=== PATIENT | male | born 1940 | race Caucasian/White ===

== ENCOUNTER → 2017-06-27 | Outpatient (CLI) | payer MEDICARE, BC | END | disposition home or self-care (01) | LOC: KCIC MRI 07:39 | DX: M48.061 Spinal stenosis, lumbar region without neurogenic claudication (principal); M47.896 Other spondylosis, lumbar region; G89.29 Other chronic pain; Z98.890 Other specified postprocedural states | CPT/HCPCS: 72148 ==

== ENCOUNTER → 2017-10-02 | Outpatient (CLI) | payer MEDICARE, BC | END | disposition home or self-care (01) | LOC: MRI 08:01 | DX: N28.1 Cyst of kidney, acquired (principal); K86.89 Other specified diseases of pancreas; I10 Essential (primary) hypertension; E11.9 Type 2 diabetes mellitus without complications; E78.5 Hyperlipidemia, unspecified; E03.9 Hypothyroidism, unspecified | CPT/HCPCS: 74181 ==

== ENCOUNTER 2018-02-27 14:27 | Inpatient (IN) | payer MEDICARE, BC ==
[~2018-02-27] VITALS: Ht 175.3 cm; Wt 73.5 kg
[2018-02-27 14:00] VITALS: BP 147/78
[~2018-02-27 14:27] MED LIST: ALFU10TA PO; ASPI-630 PO; ATOR20TA58 PO; CANA100T PO; DUTA0.5C PO; GLIM4TAB2 PO; LEVO50TA5 PO; LISI2.5T PO; METO-239 PO; MULT-312 PO; OMEG-33 PO; PIOG15TA63 PO; SAXA1TBM3 PO; TICA90TA PO
[2018-02-27] MEDS ORDERED: ONDANSETRON PF 4 MG/2 ML VIAL. IV PRN (16:15)
[2018-02-27] MEDS ORDERED: DOCUSATE SODIUM 100 MG CAPSULE. PO PRN (16:15)
[2018-02-27] MEDS ORDERED: traMADol 50 MG TABLET PO PRN (16:15)
[2018-02-27] MEDS ORDERED: HYDROcodone/APAP 5/325MG 1 TAB TABLET PO PRN (16:15)
[2018-02-27] MEDS ORDERED: MORPHINE SULFATE 2 MG/ML VIAL. IV PRN (16:15)
[2018-02-27] MEDS ORDERED: ACETAMINOPHEN 325 MG TABLET. PO PRN (16:15)
[2018-02-27] MEDS ORDERED: ALFU10TA3 PO (16:18)
[2018-02-27] MEDS ORDERED: INSU300I SQ (16:18)
[2018-02-27] MEDS ORDERED: DUTA0.5C15 PO (16:18)
[2018-02-27] MEDS ORDERED: TRAM50TA PO (16:18)
[2018-02-27] MEDS ORDERED: LIPA1CAP8 PO ×2 (16:18)
[2018-02-27] MEDS ORDERED: METF500T16 PO (16:18)
[2018-02-27] MEDS ORDERED: RABE20TA26 PO (16:18)
[2018-02-27] MEDS ORDERED: CLOP75TA PO (16:18)
[2018-02-27] MEDS ORDERED: LISI10TA2 PO (16:18)
--- NOTE | 2018-02-27 16:29 | PDOC1 ---
History and Physical Date of Admission Date of Admission 02/27/18 Identification/Chief Complaint Chief Complaint fall with rt femoral neck Source Source: Chart review, Patient History of Present Illness History of Present Illness 77YO M, was transferred from [facility] for rt hip fx. pt missed one step stair at home today, fell on the floor landing on rt lower ext, with severe pain, cannot get up. helped him got up to the truck and drove to ER. xr SHOWED rt hip fx. head ct neg. pt has h/o CABG, no chest pain or sob recently. Past Medical History Cardiovascular: CAD, HTN, Hyperlipidemia Endocrine: Diabetes Past Surgical History Past Surgical History: CABG Family History Family History: Hypertension Social History Smoke: No ALCOHOL: none Drugs: None Allergies Allergies Allergies Coded Allergies Type Severity Reaction Last Updated Verified No Known Drug Allergies 04/19/15 No ROS Review of System CONSTITUTIONAL: No fever or chills EYES: No recent changes SKIN: No rash or itching CARDIOVASCULAR: No chest pain, syncope, palpitations, or edema RESPIRATORY: No SOB or cough GASTROINTESTINAL: No nausea, vomiting or abdominal pain NEUROLOGICAL: No headaches or weakness ENDOCRINE: No cold or heat intolerance GENITOURINARY: No urgency or frequency of urination MUSCULOSKELETAL: No back pain or joint pain LYMPHATICS: No enlarged lymph nodes PSYCHIATRIC: No anxiety or depression Physical Exam Physical Exam GEN.: No apparent distress. Alert and oriented. HEENT: Head is normocephalic, atraumatic NECK: Supple. LUNGS: Clear to auscultation. HEART: RRR, S1, S2 present. Peripheral pulses intact ABDOMEN: Soft, nontender. Positive bowel sounds. EXTREMITIES: Without any cyanosis.can move bl toes, rt leg cannot move 2/2 pain, mild externally rotated mild. NEUROLOGIC: Normal speech, normal tone. rt leg pain. PSYCHIATRIC: Normal affect, normal mood. SKIN: No ulcerations VTE Prophylaxis Ordered VTE Prophylaxis Devices: Yes VTE Pharmacological Prophylaxi: No Assessment/Plan Assessment/Plan rt traumatic femoral fx s/p fall from stairs h/o CAD s/p PCI, CABG DM2 on insulin plan: fu with ortho, sx today or tmr pt has h/o cabg, no recent chest pain or sob, CXR ok, will do EKG has moderate risk to do sx hold plavix, cont other home meds, decrease lantus to 20u qhs, ssi ptot post sx heparin from tmr sw for rehab pain control prn talked to and RN. BAHMAN SÁNCHEZ MD Feb 27, 2018 16:29
[2018-02-27] MEDS ORDERED: DEXTROSE 50% 25 GM / 50ML DISP.SYRIN. IV PRN (16:30)
--- NOTE | 2018-02-27 16:32 | EKG ---
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
[2018-02-27] MEDS ORDERED: LIPASE/PROTEAS/AMYLAS 10/32/42 CAPSULE.DR. PO SCH (17:00)
[2018-02-27] MEDS ORDERED: LIPASE/PROTEAS/AMYLAS 10/32/42 CAPSULE.DR. PO PRN (17:00)
[2018-02-27] MEDS: LIPASE/PROTEAS/AMYLAS 10/32/42 CAPSULE.DR. PO SCH (17:45)
[2018-02-27] MEDS: INSULIN LISPRO 300 UNITS/3 ML INSULN.PEN. SQ SCH (17:47)
[2018-02-27 19:25] VITALS: BP 107/55
[2018-02-27] MEDS: TAMSULOSIN 0.4 MG CAP.ER.24H. PO SCH (20:49)
[2018-02-27] MEDS: ATORVASTATIN CALCIUM 20 MG TABLET PO SCH (20:49)
[2018-02-27] MEDS: INSULIN GLARGINE 300 UNITS/3 ML INSULN.PEN. SQ SCH (20:53)
[2018-02-27 23:33] VITALS: BP 110/60
[2018-02-28] VITALS (10 sets, daily range): BP systolic 96–141; BP diastolic 59–82
[2018-02-28 06:14] LABS: BASO % 0 % (0-3); EOS # 0.2 x10^3/uL (0.0-0.7); EOS % 3 % (0-3); HEMATOCRIT 37.9 % (39.0-53.0); LYMPH % 12 % (24-48); MEAN CORPUSCULAR HEMOGLOBIN 31 pg (25-35); MEAN CORPUSCULAR HGB CONC 34 g/dL (31-37); MEAN CORPUSCULAR VOLUME 91 fL (79-100); MONO # 0.7 x10^3/uL (0.0-1.1); MONO % 8 % (0-9); NEUT # 6.5 x10^3uL (1.8-7.7); NEUT % 77 % (31-73); PLATELET COUNT 197 x10^3/uL (140-400); RED BLOOD COUNT 4.17 x10^6/uL (4.30-5.70); RED CELL DISTRIBUTION WIDTH 14.4 % (11.5-14.5); WHITE BLOOD COUNT 8.5 x10^3/uL (4.0-11.0)
[2018-02-28 06:36] LABS: CREATININE 0.8 mg/dL (0.7-1.3); GFR 93.3; POTASSIUM 3.9 mmol/L (3.5-5.1)
[2018-02-28] MEDS: PANTOPRAZOLE 40 MG TABLET.DR. PO SCH (07:30)
[2018-02-28] MEDS: LIPASE/PROTEAS/AMYLAS 10/32/42 CAPSULE.DR. PO SCH ×3 (07:40→17:16)
[2018-02-28] MEDS: traMADol 50 MG TABLET PO SCH (07:41)
[2018-02-28] MEDS: DUTASTERIDE 0.5 MG CAPSULE PO SCH (07:41)
[2018-02-28] MEDS: MULTIVITAMIN with MINERAL TABLET. PO SCH (07:41)
[2018-02-28] MEDS: ASPIRIN CHEWABLE 81 MG TABLET. PO SCH (07:41)
[2018-02-28] MEDS: OMEGA-3 FATTY ACIDS/FISH OIL 1,000 MG CAPSULE. PO SCH (07:41)
[2018-02-28] MEDS: PIOGLITAZONE 15 MG TABLET. PO SCH (07:41)
[2018-02-28] MEDS ORDERED: fentaNYL PF VIAL 100 MCG/2 ML VIAL ONE (07:44)
[2018-02-28] MEDS ORDERED: ROCURONIUM 50 MG/5 ML VIAL. ONE (07:44)
[2018-02-28] MEDS ORDERED: DEXAMETHASONE SOD PHOS 20 MG/5 ML VIAL. ONE (07:45)
[2018-02-28] MEDS ORDERED: PROPOFOL 20 ML IV ONE (07:45)
[2018-02-28] MEDS ORDERED: SEVOFLURANE > 120 MINUTES. IH ONE (07:45)
[2018-02-28] MEDS ORDERED: PHENYLEPHRINE in 0.9% NACL PF 1 MG/10 ML SYRINGE. IV ONE (07:45)
[2018-02-28] MEDS ORDERED: ONDANSETRON PF 4 MG/2 ML VIAL. ONE (07:45)
[2018-02-28] MEDS: INSULIN LISPRO 300 UNITS/3 ML INSULN.PEN. SQ SCH ×3 (08:00→17:17)
[2018-02-28] MEDS: LISINOPRIL 10 MG TABLET PO SCH (09:00)
[2018-02-28] MEDS ORDERED: GLYCOPYRROLATE 1 MG/5 ML VIAL. ONE (09:31)
[2018-02-28] MEDS ORDERED: NEOSTIGMINE METHYLSULFATE 5 MG/5 ML SYRINGE. ONE (09:31)
[2018-02-28] MEDS ORDERED: SEVOFLURANE 61 TO 120 MINUTES. IH ONE (09:52)
[2018-02-28] MEDS ORDERED: IV RINGERS,LACTATED 1000ML 1,000 ML IV SCH (10:04)
[2018-02-28] MEDS ORDERED: PROCHLORPERAZINE 10 MG/2 ML VIAL. IV PRN (10:15)
[2018-02-28] MEDS ORDERED: HYDROmorphone 2 MG/ML VIAL IV PRN (10:15)
[2018-02-28] MEDS ORDERED: ONDANSETRON PF 4 MG/2 ML VIAL. IV PRN ×2 (10:15→10:30)
[2018-02-28] MEDS ORDERED: MORPHINE SULFATE 2 MG/ML VIAL. IV PRN ×2 (10:15→10:30)
[2018-02-28] MEDS ORDERED: fentaNYL PF VIAL 100 MCG/2 ML VIAL IV PRN ×2 (10:15→10:30)
[2018-02-28] MEDS ORDERED: LIDOCAINE 1% PF 2 ML VIAL. ID PRN (10:15)
[2018-02-28] MEDS: fentaNYL PF VIAL 100 MCG/2 ML VIAL IV PRN ×2 (10:22→10:34)
[2018-02-28] MEDS ORDERED: HYDROcodone/APAP 7.5/325MG 1 TAB TABLET PO PRN (10:30)
[2018-02-28] MEDS ORDERED: oxyCODONE IR 5 MG TABLET PO PRN (10:30)
[2018-02-28] MEDS ORDERED: DEXTROSE 50% 25 GM / 50ML DISP.SYRIN. IV PRN (10:30)
[2018-02-28] MEDS ORDERED: POLYETHYLENE GLYCOL 3350 17 GM PACKET. PO PRN (10:30)
--- NOTE | 2018-02-28 11:01 | RAD ---
AP pelvis and single AP right hip 02/28/2018 CLINICAL INDICATION: Postoperative right hip hemiarthroplasty. COMPARISON: Two-view right hip 04/19/2015. FINDINGS: Right hemiarthroplasty with satisfactory alignment on single AP view. Mild to moderate left hip osteoarthritis with joint space narrowing and osteophytosis. Bilateral proximal thigh vascular calcifications. Mild bilateral sacroiliac degenerative changes. IMPRESSION: Expected postoperative changes of a right hip hemiarthroplasty. Electronically signed by: Zana Sheikh MD (02/28/2018 10:58 AM) [facility] [place]
[2018-02-28] MEDS: MORPHINE SULFATE 4 MG/ML VIAL. IV PRN ×3 (11:03→21:04)
--- NOTE | 2018-02-28 11:04 | PDOC4 ---
Operative Note Operative Note Date of surgery: 02/28/2018 Preoperative diagnosis: Displaced right femoral neck fracture Postoperative diagnosis: Same Operative procedure: Right hip hemiarthroplasty Surgeon: Emy Assist: Skyla Anesthesia: Gen. Estimated blood loss: 200 mL Complications: None Drains: Hemovac right hip Specimens: Femoral head to pathology Operative indications: Patient is a 77-year-old male that fell on the stairs sustaining a displaced femoral neck fracture. He is otherwise active and I went over with him the rationale for a hemiarthroplasty given the poor likelihood of healing due to interruption of the blood supply of the femoral neck and the operative risks benefits postoperative course to include the possibility of infection nonhealing leg length inequality stiffness nerve or blood vessel damage medical or other anesthetic complications among others all his questions were answered he agrees to proceed with operative evaluation and treatment. Operative text: Patient was identified procedure verified patient placed in the supine position on the operating table. After adequate amounts of general anesthesia were administered he was placed in the decubitus position right side up using the Stulberg hip positioner. All bony prominences were well-padded the right hip was then prepped and draped in standard sterile fashion and after timeout was performed patient procedure identified and verified a curvilinear incision was made centered over the greater trochanter iliotibial band and gluteal fascia were split in line with their fibers Charnley retractor was placed external rotators were divided from their insertion hip capsule was split in a T fashion femoral head was removed and sized at a size 52 ligament was excised from the fovea acetabulum was otherwise in good condition. Femoral neck cut was made and reaming and broaching carried up to a size 12. Due to his good bone quality and activity level I contemplated a press-fit stem and after trial fitting with the size 12 broach with a 52 mm head +0 resulted in full range of motion excellent stability to about 75 internal rotation at 90 hip flexion. Leg lengths and offset were found to be reproduced. Trial components were removed and a size 12 standard offset Synergy stem was impacted into place after thorough irrigation with normal saline solution. A size 52 mm outer diameter 28 mm inner diameter bipolar construct +[address] and reduced and found to have equivalent leg length offset and stability measurements. Thorough irrigation again carried out normal saline solution hip capsule was repaired with #5 Ethibond suture external rotators reattached transosseously with #5 Ethibond fascia was closed with #1 PDS strata fix and a running fashion after placement of a Hemovac drain subcutaneous closure with buried Vicryl suture subcuticular 30 strata fix Monocryl were placed followed by a kevin drain. Patient was returned recovery room in stable condition having tolerated procedure well. Skyla arrington was present for the procedure assisted with the prepping draping retraction and skin closure BRIDGET LACY MD Feb 28, 2018 11:04
--- NOTE | 2018-02-28 12:51 | CONS ---
DATE OF CONSULTATION: 02/28/2018 REQUESTING PHYSICIAN: Dr. Addison. REASON FOR CONSULTATION: Right hip fracture. 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 He is mostly at a desk, but indicates that he goes in and often walks about a mile when he has time and works out on a stationary bike for about 20 minutes frequently. Unfortunately, he missed a step going down the stairs at home today, fell on his right side on the landing area, had immediate onset of severe pain and could not get up. He denies any head injury, loss of consciousness or other extremity injury. He was able to get an old walker that they had around to get up into his truck and drove to the ER at [facility]. He was then transferred on to [facility] after a displaced femoral neck fracture was noted on x-ray. PAST MEDICAL HISTORY: Significant for coronary artery disease, hypertension, hyperlipidemia and diabetes. PAST SURGICAL HISTORY: Coronary artery bypass graft about 10 years ago. He is followed by Dr. Allen in the interim and reports no problems. FAMILY HISTORY: Hypertension. SOCIAL HISTORY: Denies smoking, alcohol or drug use. ALLERGIES: No known drug allergies. REVIEW OF SYSTEMS: Significant only for the unsteadiness. He denies any numbness or neuropathy in his feet. In fact, his was present for some of his questioning and noted that she does have that, but he does not. He is unsure of the source of his dizziness, but really denies any shortness of breath, chest pain on exertion, really no lightheadedness and really denies any dizziness, just has the unsteadiness feeling, again without signs of neuropathy, diabetes otherwise is well controlled and he has no other constitutional symptoms at present. PHYSICAL EXAMINATION: VITAL SIGNS: He is afebrile. Vital signs are otherwise stable. HEENT: Atraumatic, normocephalic. EXTREMITIES: He has full range of motion of both shoulders, elbows and wrists bilaterally. Good rotator cuff strength. No joint swelling, tenderness on palpation or instability noted. Grasp strength is good bilaterally and he can fully flex and extend the fingers. Examination of lower extremities reveals tenderness with any attempted range of motion of the right hip. It is slightly shortened, rotated. He has normal alignment, stability of bilateral knees and ankles. Normal examination of the contralateral left hip and overall intact motor function, distal pulses, sensation, reflexes, skin in both upper and lower extremities throughout. IMAGING: X-rays show a displaced femoral neck fracture on the right. CT scan of the head showed no abnormality. IMPRESSION: 1. A 77-year-old male with right displaced femoral neck fracture. 2. History of coronary artery bypass graft 10 years ago, asymptomatic since. 3. History of unsteadiness, uncertain etiology. 4. Well controlled diabetes. 5. On Plavix due to his cardiac issues and history of stent. TREATMENT PLAN: I went over with him the usual treatment of a hemiarthroplasty for the displaced femoral neck fracture given that the blood supply is interrupted and it has a very low chance of healing. We went through the rationale of this procedure, risks, benefits, postoperative course, the expected hip precautions, possibility of instability, leg length inequality, infection, nerve or blood vessel damage, medical or other anesthetic complications among others including bleeding because he is on the Plavix. I auditor supervisor that it is really not worth delaying his surgery any further otherwise since he is medically cleared and according to Dr. Addison has good result on his EKG and is otherwise relatively low risk for the procedure. All his questions were answered. Consent was obtained and he agrees to proceed with operative evaluation and treatment, which is planned today. BRIDGET LACY MD DR: AIDAN/diandra JOB#: [id number] / [id number]
[2018-02-28] MEDS: ceFAZolin SODIUM 1 GM in IV DEXTROSE 5% 50 ML IV SCH ×2 (14:10→20:09)
--- NOTE | 2018-02-28 14:13 | PDOC ---
PROGRESS NOTES Chief Complaint Chief Complaint rt traumatic femoral fx s/p fall from stairs s/p rt hip hemiarthroplasty h/o CAD s/p PCI, CABG DM2 on insulin plan: fu with ortho pt has h/o cabg, no recent chest pain or sob, CXR ok, EKG ok cont other home meds, decrease lantus to 20u qhs, ssi ptot post sx sw for rehab pain control prn talked to and RN. talked to ortho, will resume asa, plavix daily, lovenox for dvt ppx . dc with asa, plavix only. History of Present Illness History of Present Illness ROS: no fever, chills , sob or chest pain got rt femoral fx sx has a drain Vitals Vitals Vital Signs Date Time Temp Pulse Resp B/P (MAP) Pulse Ox O2 Delivery O2 Flow Rate FiO2 02/28/18 12:18 Nasal Cannula 2.0 02/28/18 11:15 119 127/66 (86) 95 02/28/18 11:00 97.7 16 97.7 Physical Exam General: Alert, Oriented X3, Cooperative Heart: Regular rate, Normal S1, Normal S2 Lungs: Wheezing Abdomen: Normal bowel sounds, Soft, No tenderness Extremities: No clubbing, No cyanosis, No edema, Normal pulses, Other (rt thigh as a drain post op) Skin: No rashes Labs LABS Laboratory Tests Test 02/27/18 16:58 02/27/18 20:47 02/28/18 05:45 02/28/18 08:02 Glucose (Fingerstick) 215 mg/dL (70-99) 169 mg/dL (70-99) 146 mg/dL (70-99) White Blood Count 8.5 x10^3/uL (4.0-11.0) Red Blood Count 4.17 x10^6/uL (4.30-5.70) Hemoglobin 13.0 g/dL (13.0-17.5) Hematocrit 37.9 % (39.0-53.0) Mean Corpuscular Volume 91 fL (79-100) Mean Corpuscular Hemoglobin 31 pg (25-35) Mean Corpuscular Hemoglobin Concent 34 g/dL (31-37) Red Cell Distribution Width 14.4 % (11.5-14.5) Platelet Count 197 x10^3/uL (140-400) Neutrophils (%) (Auto) 77 % (31-73) Lymphocytes (%) (Auto) 12 % (24-48) Monocytes (%) (Auto) 8 % (0-9) Eosinophils (%) (Auto) 3 % (0-3) Basophils (%) (Auto) 0 % (0-3) Neutrophils # (Auto) 6.5 x10^3uL (1.8-7.7) Lymphocytes # (Auto) 1.0 x10^3/uL (1.0-4.8) Monocytes # (Auto) 0.7 x10^3/uL (0.0-1.1) Eosinophils # (Auto) 0.2 x10^3/uL (0.0-0.7) Basophils # (Auto) 0.0 x10^3/uL (0.0-0.2) Sodium Level 136 mmol/L (136-145) Potassium Level 3.9 mmol/L (3.5-5.1) Chloride Level 102 mmol/L (98-107) Carbon Dioxide Level 25 mmol/L (21-32) Anion Gap 9 (6-14) Blood Urea Nitrogen 18 mg/dL (8-26) Creatinine 0.8 mg/dL (0.7-1.3) Estimated GFR (Cockcroft-Gault) 93.3 Glucose Level 154 mg/dL (70-99) Calcium Level 9.0 mg/dL (8.5-10.1) Test 02/28/18 10:07 02/28/18 11:03 Glucose (Fingerstick) 148 mg/dL (70-99) 165 mg/dL (70-99) Comment Review of Relevant I have reviewed the following items alejandro (where applicable) has been applied. Labs Laboratory Tests Test 02/27/18 16:58 02/27/18 20:47 02/28/18 05:45 02/28/18 08:02 Glucose (Fingerstick) 215 mg/dL (70-99) 169 mg/dL (70-99) 146 mg/dL (70-99) White Blood Count 8.5 x10^3/uL (4.0-11.0) Red Blood Count 4.17 x10^6/uL (4.30-5.70) Hemoglobin 13.0 g/dL (13.0-17.5) Hematocrit 37.9 % (39.0-53.0) Mean Corpuscular Volume 91 fL (79-100) Mean Corpuscular Hemoglobin 31 pg (25-35) Mean Corpuscular Hemoglobin Concent 34 g/dL (31-37) Red Cell Distribution Width 14.4 % (11.5-14.5) Platelet Count 197 x10^3/uL (140-400) Neutrophils (%) (Auto) 77 % (31-73) Lymphocytes (%) (Auto) 12 % (24-48) Monocytes (%) (Auto) 8 % (0-9) Eosinophils (%) (Auto) 3 % (0-3) Basophils (%) (Auto) 0 % (0-3) Neutrophils # (Auto) 6.5 x10^3uL (1.8-7.7) Lymphocytes # (Auto) 1.0 x10^3/uL (1.0-4.8) Monocytes # (Auto) 0.7 x10^3/uL (0.0-1.1) Eosinophils # (Auto) 0.2 x10^3/uL (0.0-0.7) Basophils # (Auto) 0.0 x10^3/uL (0.0-0.2) Sodium Level 136 mmol/L (136-145) Potassium Level 3.9 mmol/L (3.5-5.1) Chloride Level 102 mmol/L (98-107) Carbon Dioxide Level 25 mmol/L (21-32) Anion Gap 9 (6-14) Blood Urea Nitrogen 18 mg/dL (8-26) Creatinine 0.8 mg/dL (0.7-1.3) Estimated GFR (Cockcroft-Gault) 93.3 Glucose Level 154 mg/dL (70-99) Calcium Level 9.0 mg/dL (8.5-10.1) Test 02/28/18 10:07 02/28/18 11:03 Glucose (Fingerstick) 148 mg/dL (70-99) 165 mg/dL (70-99) Laboratory Tests Test 02/27/18 16:58 02/27/18 20:47 02/28/18 05:45 02/28/18 08:02 Glucose (Fingerstick) 215 mg/dL (70-99) 169 mg/dL (70-99) 146 mg/dL (70-99) White Blood Count 8.5 x10^3/uL (4.0-11.0) Red Blood Count 4.17 x10^6/uL (4.30-5.70) Hemoglobin 13.0 g/dL (13.0-17.5) Hematocrit 37.9 % (39.0-53.0) Mean Corpuscular Volume 91 fL (79-100) Mean Corpuscular Hemoglobin 31 pg (25-35) Mean Corpuscular Hemoglobin Concent 34 g/dL (31-37) Red Cell Distribution Width 14.4 % (11.5-14.5) Platelet Count 197 x10^3/uL (140-400) Neutrophils (%) (Auto) 77 % (31-73) Lymphocytes (%) (Auto) 12 % (24-48) Monocytes (%) (Auto) 8 % (0-9) Eosinophils (%) (Auto) 3 % (0-3) Basophils (%) (Auto) 0 % (0-3) Neutrophils # (Auto) 6.5 x10^3uL (1.8-7.7) Lymphocytes # (Auto) 1.0 x10^3/uL (1.0-4.8) Monocytes # (Auto) 0.7 x10^3/uL (0.0-1.1) Eosinophils # (Auto) 0.2 x10^3/uL (0.0-0.7) Basophils # (Auto) 0.0 x10^3/uL (0.0-0.2) Sodium Level 136 mmol/L (136-145) Potassium Level 3.9 mmol/L (3.5-5.1) Chloride Level 102 mmol/L (98-107) Carbon Dioxide Level 25 mmol/L (21-32) Anion Gap 9 (6-14) Blood Urea Nitrogen 18 mg/dL (8-26) Creatinine 0.8 mg/dL (0.7-1.3) Estimated GFR (Cockcroft-Gault) 93.3 Glucose Level 154 mg/dL (70-99) Calcium Level 9.0 mg/dL (8.5-10.1) Test 02/28/18 10:07 02/28/18 11:03 Glucose (Fingerstick) 148 mg/dL (70-99) 165 mg/dL (70-99) Medications Current Medications Acetaminophen (Tylenol) 650 mg PRN Q6HRS PRN PO FEVER; Start 02/27/18 at 16:15 Ondansetron HCl (Zofran) 4 mg PRN Q6HRS PRN IV NAUSEA/VOMITING; Start 02/27/18 at 16:15; Stop 02/28/18 at 10:39; Status DC Morphine Sulfate (Morphine Sulfate) 2 mg PRN Q2HR PRN IV MODERATE TO SEVERE PAIN Last administered on 02/28/18at 07:16; Start 02/27/18 at 16:15; Stop 02/28 at 10:42; Status DC Tramadol HCl (Ultram) 50 mg PRN Q6HRS PRN PO MILD TO MODERATE PAIN; Start 02/27 at 16:15; Stop 02/28/18 at 10:39; Status DC Docusate Sodium (Colace) 100 mg PRN DAILY PRN PO CONSTIPATION; Start 02/27/18 at 16:15 Acetaminophen/ Hydrocodone Bitart (Lortab 5/325) 1 tab PRN Q4HRS PRN PO SEVERE PAIN Last administered on 02/27/18at 20:49; Start 02/27/18 at 16:15; Stop at 10:39; Status DC Aspirin (Children'S Aspirin) 81 mg DAILY PO ; Start 02/28/18 at 09:00 Atorvastatin Calcium (Lipitor) 20 mg HS PO Last administered on 02/27/18at 20:49 ; Start 02/27/18 at 21:00 Lisinopril (Prinivil) 10 mg DAILY PO ; Start 02/28/18 at 09:00 Tramadol HCl (Ultram) 50 mg DAILY PO ; Start 02/28/18 at 09:00 Tamsulosin HCl (Flomax) 0.4 mg QHS PO Last administered on 02/27/18at 20:49; Start 02/27/18 at 21:00 Dutasteride (Avodart) 0.5 mg DAILY PO ; Start 02/28/18 at 09:00 Amylase/Lipase/ Protease (Zenpep 10,000) 1 cap DAILY16 PO ; Start 02/27/18 at 17 :00; Stop 02/27/18 at 17:00; Status DC Amylase/Lipase/ Protease (Zenpep 10,000) 2 cap TIDWMEALS PO Last administered on 02/28/18at 12:18; Start 02/27/18 at 17:00 Multivitamins (Thera M Plus) 1 tab DAILY PO ; Start 02/28/18 at 09:00 Fish Oil (Fish Oil) 1,000 mg DAILY PO ; Start 02/28/18 at 09:00 Pioglitazone HCl (Actos) 15 mg DAILY PO ; Start 02/28/18 at 09:00 Pantoprazole Sodium (Protonix) 40 mg DAILYAC PO ; Start 02/28/18 at 07:30 Insulin Glargine (Lantus) 20 units QHS SQ Last administered on 02/27/18at 20:53 ; Start 02/27/18 at 21:00 Insulin Human Lispro (HumaLOG) 0-9 UNITS TIDWMEALS SQ Last administered on 02/05at 12:22; Start 02/27/18 at 17:00 Dextrose (Dextrose 50%-Water Syringe) 12.5 gm PRN Q15MIN PRN IV SEE COMMENTS; Start 02/27/18 at 16:30 Amylase/Lipase/ Protease (Zenpep 10,000) 1 cap PRN DAILY PRN PO WITH SNACKS; Start 02/27/18 at 17:00 Rocuronium [place] (Zemuron) 50 mg STK-MED ONCE .ROUTE ; Start 02/28/18 at 07: 44; Stop 02/28/18 at 07:45; Status DC Fentanyl Citrate (Fentanyl 2ml Vial) 100 mcg STK-MED ONCE .ROUTE ; Start at 07:44; Stop 02/28/18 at 07:45; Status DC Sevoflurane (Ultane) 90 ml STK-MED ONCE IH ; Start 02/28/18 at 07:45; Stop 02/05 at 07:46; Status DC Propofol 20 ml @ As Directed STK-MED ONCE IV ; Start 02/28/18 at 07:45; Stop 02/28/18 at 07:46; Status DC Dexamethasone Sodium Phosphate (Decadron) 20 mg STK-MED ONCE .ROUTE ; Start 02/05 at 07:45; Stop 02/28/18 at 07:46; Status DC Ondansetron HCl (Zofran) 4 mg STK-MED ONCE .ROUTE ; Start 02/28/18 at 07:45; Stop 02/28/18 at 07:46; Status DC Phenylephrine HCl (PHENYLEPHRINE in 0.9% NACL PF) 1 mg STK-MED ONCE IV ; Start 02/28/18 at 07:45; Stop 02/28/18 at 07:46; Status DC Cefazolin Sodium 50 ml @ As Directed STK-MED ONCE IV ; Start 02/28/18 at 08:21 ; Stop 02/28/18 at 08:22; Status DC Cefazolin Sodium 50 ml @ 100 mls/hr 1X ONCE IV Last administered on at 08:29; Start 02/28/18 at 09:15; Stop 02/28/18 at 09:44; Status DC Glycopyrrolate (Robinul) 1 mg STK-MED ONCE .ROUTE ; Start 02/28/18 at 09:31; Stop 02/28/18 at 09:32; Status DC Neostigmine Methylsulfate (Neostigmine Methylsulfate) 5 mg STK-MED ONCE .ROUTE ; Start 02/28/18 at 09:31; Stop 02/28/18 at 09:32; Status DC Sevoflurane (Ultane) 60 ml STK-MED ONCE IH ; Start 02/28/18 at 09:52; Stop 02/05 at 09:53; Status DC Ondansetron HCl (Zofran) 4 mg PRN Q6HRS PRN IV NAUSEA/VOMITING; Start at 10:15; Stop 03/01/18 at 10:14 Fentanyl Citrate (Fentanyl 2ml Vial) 25 mcg PRN Q5MIN PRN IV MILD PAIN; Start 02/28/18 at 10:15; Stop 03/01/18 at 10:14 Fentanyl Citrate (Fentanyl 2ml Vial) 50 mcg PRN Q5MIN PRN IV MODERATE TO SEVERE PAIN Last administered on 02/28/18at 10:34; Start 02/28/18 at 10:15; Stop 03/01/18 at 10:14 Morphine Sulfate (Morphine Sulfate) 1 mg PRN Q10MIN PRN IV SEVERE PAIN; Start 02/28/18 at 10:15; Stop 03/01/18 at 10:14 Ringer's Solution 1,000 ml @ 30 mls/hr Q24H IV Last administered on at 10:23; Start 02/28/18 at 10:04; Stop 02/28/18 at 22:03 Lidocaine HCl (Xylocaine-Mpf 1% 2ml Vial) 2 ml 1X PRN PRN ID IV START; Start 02/28/18 at 10:15; Stop 03/01/18 at 10:14 Hydromorphone HCl (Dilaudid) 0.5 mg PRN Q10MIN PRN IV SEV PAIN, Second choice; Start 02/28/18 at 10:15; Stop 03/01/18 at 10:14 Prochlorperazine Edisylate (Compazine) 5 mg PACU PRN PRN IV NAUSEA, MRX1; Start 02/28/18 at 10:15; Stop 03/01/18 at 10:14 Oxycodone HCl (Roxicodone) 5 mg PRN Q3HRS PRN PO PAIN Last administered on 02/05at 12:18; Start 02/28/18 at 10:30 Morphine Sulfate (Morphine Sulfate) 2 mg PRN Q1HR PRN IV PAIN; Start 02/28/18 at 10:30 Fentanyl Citrate (Fentanyl 2ml Vial) 25 mcg PRN Q1HR PRN IV PAIN; Start at 10:30 Senna/Docusate Sodium (Senna Plus) 1 tab DAILY PO ; Start 03/01/18 at 09:00 Polyethylene Glycol (miraLAX PACKET) 17 gm PRN DAILY PRN PO CONSTIPATION; Start 02/28/18 at 10:30 Ondansetron HCl (Zofran) 4 mg PRN Q4HRS PRN IV NAUSEA/VOMITING; Start at 10:30 Magnesium Hydroxide (Milk Of Magnesia) 2,400 mg 1X PRN PRN PO CONSTIPATION; Start 03/01/18 at 06:00; Stop 03/02/18 at 05:59 Bisacodyl (Dulcolax Supp) 10 mg 1X PRN PRN [place] CONSTIPATION; Start 03/01/18 at 16:00; Stop 03/02/18 at 15:59 Acetaminophen/ Hydrocodone Bitart (Lortab 7.5/325) 1 tab PRN Q4HRS PRN PO PAIN ; Start 02/28/18 at 10:30 Morphine Sulfate (Morphine Sulfate) 4 mg PRN Q2HR PRN IV PAIN Last administered on 02/28/18at 11:03; Start 02/28/18 at 10:30 Acetaminophen/ Hydrocodone Bitart (Lortab 7.5/325) 2 tab PRN Q4HRS PRN PO PAIN ; Start 02/28/18 at 10:30 Dextrose (Dextrose 50%-Water Syringe) 12.5 gm PRN Q15MIN PRN IV SEE COMMENTS; Start 02/28/18 at 10:30; Status UNV Cefazolin Sodium 1 gm/Dextrose 50 ml @ 100 mls/hr Q6H IV ; Start 02/28/18 at 14:30; Stop 03/01/18 at 02:59 Clopidogrel Bisulfate (Plavix) 75 mg DAILYWBKFT PO ; Start 03/01/18 at 08:00 Active Scripts Active Reported Creon 36,000 Units Capsule (Lipase/Protease/Amylase) 1 Each Capsule.dr 1 Each PO DAILY16 with evening snack Toujeo Solostar (Insulin Glargine,Hum.rec.anlog) 300 Unit/1 Ml Insuln.pen 45 Units SQ HS Dutasteride 0.5 Mg Capsule 0.5 Mg PO DAILY Lisinopril 10 Mg Tablet 10 Mg PO DAILY Creon 36,000 Units Capsule (Lipase/Protease/Amylase) 1 Each Capsule. 2 Cap PO TIDBFRMEAL Tramadol Hcl 50 Mg Tablet 50 Mg PO DAILY Rabeprazole Sodium 20 Mg Tablet. 20 Mg PO DAILY Alfuzosin Hcl 10 Mg Tab.er.24h 10 Mg PO DAILY Metformin Hcl 500 Mg Tablet 500 Mg PO BID Clopidogrel (Clopidogrel Bisulfate) 75 Mg Tablet 75 Mg PO DAILY Atorvastatin Calcium 20 Mg Tablet 20 Mg PO HS Pioglitazone Hcl 15 Mg Tablet 15 Mg PO DAILY One Daily Plus Minerals (Multivitamin With Minerals) 1 Each Tablet 1 Each PO DAILY Aspirin 81 Mg Tab.chew 81 Mg PO DAILY Holt 3 1,000 Mg Softgel (Holt-3 Fatty Acids/Fish Oil) 1 Each Capsule 1 Each PO DAILY Uroxatral (Alfuzosin Hcl) 10 Mg Tab.er.24h 10 Mg PO DAILY Avodart (Dutasteride) 0.5 Mg Capsule 0.5 Mg PO DAILY Vitals/I & O Vital Sign - Last 24 Hours 02/27/18 02/27/18 02/27/18 02/27/18 15:40 19:25 20:20 20:49 Temp 98.5 98.5 Pulse 89 Resp 18 B/P (MAP) 107/55 (72) Pulse Ox 94 O2 Delivery Room Air Room Air Room Air Room Air 02/27/18 02/27/18 02/28/18 02/28/18 22:00 23:33 03:13 07:10 Temp 98.6 98.3 98.6 98.3 Pulse 87 88 Resp 18 18 B/P (MAP) 110/60 (77) 108/63 (78) Pulse Ox 94 94 O2 Delivery Room Air Room Air Room Air Room Air 02/28/18 02/28/18 02/28/18 02/28/18 07:16 07:45 09:00 09:53 Temp 98.2 97.5 98.2 97.5 Pulse 94 94 72 Resp 18 20 B/P (MAP) 133/77 (95) 133/77 140/69 Pulse Ox 93 98 O2 Delivery Room Air Room Air Simple Mask O2 Flow Rate 10 02/28/18 02/28/18 02/28/18 02/28/18 10:08 10:22 10:23 10:34 Pulse 71 75 Resp 20 20 20 20 B/P (MAP) 139/69 137/69 Pulse Ox 97 97 99 O2 Delivery Simple Mask Nasal Cannula Nasal Cannula O2 Flow Rate 10 2.0 2 02/28/18 02/28/18 02/28/18 02/28/18 10:38 10:45 11:00 11:03 Temp 97.6 97.7 97.6 97.7 Pulse 90 97 Resp 20 16 B/P (MAP) 139/68 130/72 (91) Pulse Ox 94 96 O2 Delivery Nasal Cannula Nasal Cannula Nasal Cannula Nasal Cannula O2 Flow Rate 2 2 2.0 2.0 02/28/18 02/28/18 02/28/18 11:15 12:18 12:18 Pulse 119 B/P (MAP) 127/66 (86) Pulse Ox 95 O2 Delivery Nasal Cannula Nasal Cannula Nasal Cannula O2 Flow Rate 2.0 2.0 2.0 Intake and Output 02/27/18 02/27/18 02/28/18 15:00 23:00 07:00 Intake Total 0 ml 360 ml Output Total 600 ml 400 ml Balance -600 ml -40 ml BAHMAN SÁNCHEZ MD Feb 28, 2018 14:13
[2018-02-28] MEDS: HYDROcodone/APAP 7.5/325MG 1 TAB TABLET PO PRN (15:55)
[2018-02-28] MEDS: ATORVASTATIN CALCIUM 20 MG TABLET PO SCH (21:04)
[2018-02-28] MEDS: TAMSULOSIN 0.4 MG CAP.ER.24H. PO SCH (21:04)
[2018-02-28] MEDS: INSULIN GLARGINE 300 UNITS/3 ML INSULN.PEN. SQ SCH (21:09)
[2018-03-01] MEDS: ceFAZolin SODIUM 1 GM in IV DEXTROSE 5% 50 ML IV SCH (02:39)
[2018-03-01 03:00] VITALS: BP 121/59
[2018-03-01 05:28] LABS: BASO % 0 % (0-3); EOS % 0 % (0-3); HEMATOCRIT 28.6 % (39.0-53.0); HEMOGLOBIN 9.9 g/dL (13.0-17.5); LYMPH # 1.3 x10^3/uL (1.0-4.8); LYMPH % 13 % (24-48); MEAN CORPUSCULAR HEMOGLOBIN 31 pg (25-35); MEAN CORPUSCULAR HGB CONC 35 g/dL (31-37); MEAN CORPUSCULAR VOLUME 91 fL (79-100); MONO % 10 % (0-9); NEUT # 7.6 x10^3uL (1.8-7.7); NEUT % 77 % (31-73); PLATELET COUNT 190 x10^3/uL (140-400); RED BLOOD COUNT 3.16 x10^6/uL (4.30-5.70); RED CELL DISTRIBUTION WIDTH 14.1 % (11.5-14.5); WHITE BLOOD COUNT 9.8 x10^3/uL (4.0-11.0)
[2018-03-01 05:37] LABS: CALCIUM 8.6 mg/dL (8.5-10.1); GFR 72.1; POTASSIUM 4.4 mmol/L (3.5-5.1)
[2018-03-01] MEDS ORDERED: MAGNESIUM HYDROXIDE 2,400 MG/30 ML ORAL.SUSP. PO PRN (06:00)
[2018-03-01 07:00] VITALS: BP 131/70
[2018-03-01] MEDS: SENNOSIDES/DOCUSATE 8.6/50MG TABLET. PO SCH (08:26)
[2018-03-01] MEDS: MULTIVITAMIN with MINERAL TABLET. PO SCH (08:27)
[2018-03-01] MEDS: LIPASE/PROTEAS/AMYLAS 10/32/42 CAPSULE.DR. PO SCH ×3 (08:27→17:11)
[2018-03-01] MEDS: DUTASTERIDE 0.5 MG CAPSULE PO SCH (08:27)
[2018-03-01] MEDS: ENOXAPARIN 40 MG/0.4 ML SYRINGE. SQ SCH (08:27)
[2018-03-01] MEDS: PANTOPRAZOLE 40 MG TABLET.DR. PO SCH (08:28)
[2018-03-01] MEDS: OMEGA-3 FATTY ACIDS/FISH OIL 1,000 MG CAPSULE. PO SCH (08:28)
[2018-03-01] MEDS: PIOGLITAZONE 15 MG TABLET. PO SCH (08:28)
[2018-03-01] MEDS: traMADol 50 MG TABLET PO SCH (08:28)
[2018-03-01] MEDS: CLOPIDOGREL BISULFATE 75 MG TABLET PO SCH (08:29)
[2018-03-01] MEDS: LISINOPRIL 10 MG TABLET PO SCH (08:29)
[2018-03-01] MEDS: ASPIRIN CHEWABLE 81 MG TABLET. PO SCH (08:29)
[2018-03-01] MEDS: INSULIN LISPRO 300 UNITS/3 ML INSULN.PEN. SQ SCH ×3 (08:34→17:16)
[2018-03-01] MEDS ORDERED: CLOPIDOGREL BISULFATE 75 MG TABLET PO SCH (09:00)
--- NOTE | 2018-03-01 10:48 | EKG ---
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
[2018-03-01 11:00] VITALS: BP 129/63
--- NOTE | 2018-03-01 13:12 | PDOC ---
PROGRESS NOTES Chief Complaint Chief Complaint rt traumatic femoral fx s/p fall from stairs s/p rt hip hemiarthroplasty h/o CAD s/p PCI, CABG DM2 on insulin anemia post op H/O pancreatic problem fu with [facility] plan: fu with ortho pt has h/o cabg, no recent chest pain or sob, CXR ok, EKG ok cont other home meds, increase lantus to 30u qhs, ssi ptot sw for rehab pain control prn talked to and RN. talked to ortho , resume asa, plavix daily, lovenox for dvt ppx . dc with asa, plavix only. given new chest pain, REpeat EKG, ok. check trop x2. talked to nurse. History of Present Illness History of Present Illness ROS: no fever, chills , sob or chest pain got rt femoral fx sx has a drain 03/01: c/o some chest pain today post PTOT, with some nausea hyperglycemia Vitals Vitals Vital Signs Date Time Temp Pulse Resp B/P (MAP) Pulse Ox O2 Delivery O2 Flow Rate FiO2 03/01/18 11:00 98.1 98 16 129/63 (85) 92 Room Air 98.1 03/01/18 03:00 2.0 Physical Exam General: Alert, Oriented X3, Cooperative Heart: Regular rate, Normal S1, Normal S2 Lungs: Wheezing Abdomen: Normal bowel sounds, Soft, No tenderness Extremities: No clubbing, No cyanosis, No edema, Normal pulses, Other (rt thigh as a drain post op) Skin: No rashes Labs LABS Laboratory Tests Test 02/28/18 17:02 02/28/18 20:40 03/01/18 04:45 03/01/18 08:02 Glucose (Fingerstick) 290 mg/dL (70-99) 303 mg/dL (70-99) 192 mg/dL (70-99) White Blood Count 9.8 x10^3/uL (4.0-11.0) Red Blood Count 3.16 x10^6/uL (4.30-5.70) Hemoglobin 9.9 g/dL (13.0-17.5) Hematocrit 28.6 % (39.0-53.0) Mean Corpuscular Volume 91 fL (79-100) Mean Corpuscular Hemoglobin 31 pg (25-35) Mean Corpuscular Hemoglobin Concent 35 g/dL (31-37) Red Cell Distribution Width 14.1 % (11.5-14.5) Platelet Count 190 x10^3/uL (140-400) Neutrophils (%) (Auto) 77 % (31-73) Lymphocytes (%) (Auto) 13 % (24-48) Monocytes (%) (Auto) 10 % (0-9) Eosinophils (%) (Auto) 0 % (0-3) Basophils (%) (Auto) 0 % (0-3) Neutrophils # (Auto) 7.6 x10^3uL (1.8-7.7) Lymphocytes # (Auto) 1.3 x10^3/uL (1.0-4.8) Monocytes # (Auto) 1.0 x10^3/uL (0.0-1.1) Eosinophils # (Auto) 0.0 x10^3/uL (0.0-0.7) Basophils # (Auto) 0.0 x10^3/uL (0.0-0.2) Sodium Level 131 mmol/L (136-145) Potassium Level 4.4 mmol/L (3.5-5.1) Chloride Level 95 mmol/L (98-107) Carbon Dioxide Level 28 mmol/L (21-32) Anion Gap 8 (6-14) Blood Urea Nitrogen 23 mg/dL (8-26) Creatinine 1.0 mg/dL (0.7-1.3) Estimated GFR (Cockcroft-Gault) 72.1 Glucose Level 231 mg/dL (70-99) Calcium Level 8.6 mg/dL (8.5-10.1) Troponin I Quantitative < 0.017 ng/mL (0.000-0.055) Test 03/01/18 11:42 Glucose (Fingerstick) 239 mg/dL (70-99) Comment Review of Relevant I have reviewed the following items alejandro (where applicable) has been applied. Labs Laboratory Tests Test 02/27/18 16:58 02/27/18 19:10 02/27/18 20:47 02/28/18 05:45 Glucose (Fingerstick) 215 mg/dL (70-99) 169 mg/dL (70-99) Nasal Screen MRSA (PCR) Negative (Negative) White Blood Count 8.5 x10^3/uL (4.0-11.0) Red Blood Count 4.17 x10^6/uL (4.30-5.70) Hemoglobin 13.0 g/dL (13.0-17.5) Hematocrit 37.9 % (39.0-53.0) Mean Corpuscular Volume 91 fL (79-100) Mean Corpuscular Hemoglobin 31 pg (25-35) Mean Corpuscular Hemoglobin Concent 34 g/dL (31-37) Red Cell Distribution Width 14.4 % (11.5-14.5) Platelet Count 197 x10^3/uL (140-400) Neutrophils (%) (Auto) 77 % (31-73) Lymphocytes (%) (Auto) 12 % (24-48) Monocytes (%) (Auto) 8 % (0-9) Eosinophils (%) (Auto) 3 % (0-3) Basophils (%) (Auto) 0 % (0-3) Neutrophils # (Auto) 6.5 x10^3uL (1.8-7.7) Lymphocytes # (Auto) 1.0 x10^3/uL (1.0-4.8) Monocytes # (Auto) 0.7 x10^3/uL (0.0-1.1) Eosinophils # (Auto) 0.2 x10^3/uL (0.0-0.7) Basophils # (Auto) 0.0 x10^3/uL (0.0-0.2) Sodium Level 136 mmol/L (136-145) Potassium Level 3.9 mmol/L (3.5-5.1) Chloride Level 102 mmol/L (98-107) Carbon Dioxide Level 25 mmol/L (21-32) Anion Gap 9 (6-14) Blood Urea Nitrogen 18 mg/dL (8-26) Creatinine 0.8 mg/dL (0.7-1.3) Estimated GFR (Cockcroft-Gault) 93.3 Glucose Level 154 mg/dL (70-99) Calcium Level 9.0 mg/dL (8.5-10.1) Test 02/28/18 08:02 02/28/18 10:07 02/28/18 11:03 02/28/18 17:02 Glucose (Fingerstick) 146 mg/dL (70-99) 148 mg/dL (70-99) 165 mg/dL (70-99) 290 mg/dL (70-99) Test 02/28/18 20:40 03/01/18 04:45 03/01/18 08:02 03/01/18 11:42 Glucose (Fingerstick) 303 mg/dL (70-99) 192 mg/dL (70-99) 239 mg/dL (70-99) White Blood Count 9.8 x10^3/uL (4.0-11.0) Red Blood Count 3.16 x10^6/uL (4.30-5.70) Hemoglobin 9.9 g/dL (13.0-17.5) Hematocrit 28.6 % (39.0-53.0) Mean Corpuscular Volume 91 fL (79-100) Mean Corpuscular Hemoglobin 31 pg (25-35) Mean Corpuscular Hemoglobin Concent 35 g/dL (31-37) Red Cell Distribution Width 14.1 % (11.5-14.5) Platelet Count 190 x10^3/uL (140-400) Neutrophils (%) (Auto) 77 % (31-73) Lymphocytes (%) (Auto) 13 % (24-48) Monocytes (%) (Auto) 10 % (0-9) Eosinophils (%) (Auto) 0 % (0-3) Basophils (%) (Auto) 0 % (0-3) Neutrophils # (Auto) 7.6 x10^3uL (1.8-7.7) Lymphocytes # (Auto) 1.3 x10^3/uL (1.0-4.8) Monocytes # (Auto) 1.0 x10^3/uL (0.0-1.1) Eosinophils # (Auto) 0.0 x10^3/uL (0.0-0.7) Basophils # (Auto) 0.0 x10^3/uL (0.0-0.2) Sodium Level 131 mmol/L (136-145) Potassium Level 4.4 mmol/L (3.5-5.1) Chloride Level 95 mmol/L (98-107) Carbon Dioxide Level 28 mmol/L (21-32) Anion Gap 8 (6-14) Blood Urea Nitrogen 23 mg/dL (8-26) Creatinine 1.0 mg/dL (0.7-1.3) Estimated GFR (Cockcroft-Gault) 72.1 Glucose Level 231 mg/dL (70-99) Calcium Level 8.6 mg/dL (8.5-10.1) Troponin I Quantitative < 0.017 ng/mL (0.000-0.055) Laboratory Tests Test 02/28/18 17:02 02/28/18 20:40 03/01/18 04:45 03/01/18 08:02 Glucose (Fingerstick) 290 mg/dL (70-99) 303 mg/dL (70-99) 192 mg/dL (70-99) White Blood Count 9.8 x10^3/uL (4.0-11.0) Red Blood Count 3.16 x10^6/uL (4.30-5.70) Hemoglobin 9.9 g/dL (13.0-17.5) Hematocrit 28.6 % (39.0-53.0) Mean Corpuscular Volume 91 fL (79-100) Mean Corpuscular Hemoglobin 31 pg (25-35) Mean Corpuscular Hemoglobin Concent 35 g/dL (31-37) Red Cell Distribution Width 14.1 % (11.5-14.5) Platelet Count 190 x10^3/uL (140-400) Neutrophils (%) (Auto) 77 % (31-73) Lymphocytes (%) (Auto) 13 % (24-48) Monocytes (%) (Auto) 10 % (0-9) Eosinophils (%) (Auto) 0 % (0-3) Basophils (%) (Auto) 0 % (0-3) Neutrophils # (Auto) 7.6 x10^3uL (1.8-7.7) Lymphocytes # (Auto) 1.3 x10^3/uL (1.0-4.8) Monocytes # (Auto) 1.0 x10^3/uL (0.0-1.1) Eosinophils # (Auto) 0.0 x10^3/uL (0.0-0.7) Basophils # (Auto) 0.0 x10^3/uL (0.0-0.2) Sodium Level 131 mmol/L (136-145) Potassium Level 4.4 mmol/L (3.5-5.1) Chloride Level 95 mmol/L (98-107) Carbon Dioxide Level 28 mmol/L (21-32) Anion Gap 8 (6-14) Blood Urea Nitrogen 23 mg/dL (8-26) Creatinine 1.0 mg/dL (0.7-1.3) Estimated GFR (Cockcroft-Gault) 72.1 Glucose Level 231 mg/dL (70-99) Calcium Level 8.6 mg/dL (8.5-10.1) Troponin I Quantitative < 0.017 ng/mL (0.000-0.055) Test 03/01/18 11:42 Glucose (Fingerstick) 239 mg/dL (70-99) Medications Current Medications Acetaminophen (Tylenol) 650 mg PRN Q6HRS PRN PO FEVER; Start 02/27/18 at 16:15 Ondansetron HCl (Zofran) 4 mg PRN Q6HRS PRN IV NAUSEA/VOMITING; Start 02/27/18 at 16:15; Stop 02/28/18 at 10:39; Status DC Morphine Sulfate (Morphine Sulfate) 2 mg PRN Q2HR PRN IV MODERATE TO SEVERE PAIN Last administered on 02/28/18at 07:16; Start 02/27/18 at 16:15; Stop 02/28 at 10:42; Status DC Tramadol HCl (Ultram) 50 mg PRN Q6HRS PRN PO MILD TO MODERATE PAIN; Start 02/27 at 16:15; Stop 02/28/18 at 10:39; Status DC Docusate Sodium (Colace) 100 mg PRN DAILY PRN PO CONSTIPATION; Start 02/27/18 at 16:15 Acetaminophen/ Hydrocodone Bitart (Lortab 5/325) 1 tab PRN Q4HRS PRN PO SEVERE PAIN Last administered on 02/27/18at 20:49; Start 02/27/18 at 16:15; Stop at 10:39; Status DC Aspirin (Children'S Aspirin) 81 mg DAILY PO Last administered on 03/01/18at 08: 29; Start 02/28/18 at 09:00 Atorvastatin Calcium (Lipitor) 20 mg HS PO Last administered on 02/28/18at 21: 04; Start 02/27/18 at 21:00 Lisinopril (Prinivil) 10 mg DAILY PO Last administered on 03/01/18 08:29; Start 02/28/18 at 09:00 Tramadol HCl (Ultram) 50 mg DAILY PO Last administered on 03/01/18 08:28; Start 02/28/18 at 09:00 Tamsulosin HCl (Flomax) 0.4 mg QHS PO Last administered on 02/28/18at 21:04; Start 02/27/18 at 21:00 Dutasteride (Avodart) 0.5 mg DAILY PO Last administered on 03/01/18at 08:27; Start 02/28/18 at 09:00 Amylase/Lipase/ Protease (Zenpep 10,000) 1 cap DAILY16 PO ; Start 02/27/18 at 17 :00; Stop 02/27/18 at 17:00; Status DC Amylase/Lipase/ Protease (Zenpep 10,000) 2 cap TIDWMEALS PO Last administered on 03/01/18 12:08; Start 02/27/18 at 17:00 Multivitamins (Thera M Plus) 1 tab DAILY PO Last administered on 03/01/18at 08: 27; Start 02/28/18 at 09:00 Fish Oil (Fish Oil) 1,000 mg DAILY PO Last administered on 03/01/18 08:28; Start 02/28/18 at 09:00 Pioglitazone HCl (Actos) 15 mg DAILY PO Last administered on 03/01/18at 08:28; Start 02/28/18 at 09:00 Pantoprazole Sodium (Protonix) 40 mg DAILYAC PO Last administered on at 08:28; Start 02/28/18 at 07:30 Insulin Glargine (Lantus) 20 units QHS SQ Last administered on 02/28/18at 21:09 ; Start 02/27/18 at 21:00; Stop 03/01/18 at 10:53; Status DC Insulin Human Lispro (HumaLOG) 0-9 UNITS TIDWMEALS SQ Last administered on 03/08at 12:10; Start 02/27/18 at 17:00 Dextrose (Dextrose 50%-Water Syringe) 12.5 gm PRN Q15MIN PRN IV SEE COMMENTS; Start 02/27/18 at 16:30 Amylase/Lipase/ Protease (Zenpep 10,000) 1 cap PRN DAILY PRN PO WITH SNACKS; Start 02/27/18 at 17:00 Rocuronium [place] (Zemuron) 50 mg STK-MED ONCE .ROUTE ; Start 02/28/18 at 07: 44; Stop 02/28/18 at 07:45; Status DC Fentanyl Citrate (Fentanyl 2ml Vial) 100 mcg STK-MED ONCE .ROUTE ; Start at 07:44; Stop 02/28/18 at 07:45; Status DC Sevoflurane (Ultane) 90 ml STK-MED ONCE IH ; Start 02/28/18 at 07:45; Stop 02/05 at 07:46; Status DC Propofol 20 ml @ As Directed STK-MED ONCE IV ; Start 02/28/18 at 07:45; Stop 02/28/18 at 07:46; Status DC Dexamethasone Sodium Phosphate (Decadron) 20 mg STK-MED ONCE .ROUTE ; Start 02/05 at 07:45; Stop 02/28/18 at 07:46; Status DC Ondansetron HCl (Zofran) 4 mg STK-MED ONCE .ROUTE ; Start 02/28/18 at 07:45; Stop 02/28/18 at 07:46; Status DC Phenylephrine HCl (PHENYLEPHRINE in 0.9% NACL PF) 1 mg STK-MED ONCE IV ; Start 02/28/18 at 07:45; Stop 02/28/18 at 07:46; Status DC Cefazolin Sodium 50 ml @ As Directed STK-MED ONCE IV ; Start 02/28/18 at 08:21 ; Stop 02/28/18 at 08:22; Status DC Cefazolin Sodium 50 ml @ 100 mls/hr 1X ONCE IV Last administered on at 08:29; Start 02/28/18 at 09:15; Stop 02/28/18 at 09:44; Status DC Glycopyrrolate (Robinul) 1 mg STK-MED ONCE .ROUTE ; Start 02/28/18 at 09:31; Stop 02/28/18 at 09:32; Status DC Neostigmine Methylsulfate (Neostigmine Methylsulfate) 5 mg STK-MED ONCE .ROUTE ; Start 02/28/18 at 09:31; Stop 02/28/18 at 09:32; Status DC Sevoflurane (Ultane) 60 ml STK-MED ONCE IH ; Start 02/28/18 at 09:52; Stop 02/05 at 09:53; Status DC Ondansetron HCl (Zofran) 4 mg PRN Q6HRS PRN IV NAUSEA/VOMITING; Start at 10:15; Stop 02/28/18 at 15:02; Status DC Fentanyl Citrate (Fentanyl 2ml Vial) 25 mcg PRN Q5MIN PRN IV MILD PAIN; Start 02/28/18 at 10:15; Stop 02/28/18 at 15:01; Status DC Fentanyl Citrate (Fentanyl 2ml Vial) 50 mcg PRN Q5MIN PRN IV MODERATE TO SEVERE PAIN Last administered on 02/28/18at 10:34; Start 02/28/18 at 10:15; Stop 02/28/18 at 15:01; Status DC Morphine Sulfate (Morphine Sulfate) 1 mg PRN Q10MIN PRN IV SEVERE PAIN; Start 02/28/18 at 10:15; Stop 02/28/18 at 15:02; Status DC Ringer's Solution 1,000 ml @ 30 mls/hr Q24H IV Last administered on at 10:23; Start 02/28/18 at 10:04; Stop 02/28/18 at 22:03; Status DC Lidocaine HCl (Xylocaine-Mpf 1% 2ml Vial) 2 ml 1X PRN PRN ID IV START; Start 02/28/18 at 10:15; Stop 02/28/18 at 15:02; Status DC Hydromorphone HCl (Dilaudid) 0.5 mg PRN Q10MIN PRN IV SEV PAIN, Second choice; Start 02/28/18 at 10:15; Stop 02/28/18 at 15:01; Status DC Prochlorperazine Edisylate (Compazine) 5 mg PACU PRN PRN IV NAUSEA, MRX1; Start 02/28/18 at 10:15; Stop 02/28/18 at 15:03; Status DC Oxycodone HCl (Roxicodone) 5 mg PRN Q3HRS PRN PO PAIN Last administered on 02/05at 12:18; Start 02/28/18 at 10:30 Morphine Sulfate (Morphine Sulfate) 2 mg PRN Q1HR PRN IV PAIN; Start 02/28/18 at 10:30 Fentanyl Citrate (Fentanyl 2ml Vial) 25 mcg PRN Q1HR PRN IV PAIN; Start at 10:30 Senna/Docusate Sodium (Senna Plus) 1 tab DAILY PO Last administered on at 08:26; Start 03/01/18 at 09:00 Polyethylene Glycol (miraLAX PACKET) 17 gm PRN DAILY PRN PO CONSTIPATION; Start 02/28/18 at 10:30 Ondansetron HCl (Zofran) 4 mg PRN Q4HRS PRN IV NAUSEA/VOMITING; Start at 10:30 Magnesium Hydroxide (Milk Of Magnesia) 2,400 mg 1X PRN PRN PO CONSTIPATION; Start 03/01/18 at 06:00; Stop 03/02/18 at 05:59 Bisacodyl (Dulcolax Supp) 10 mg 1X PRN PRN [place] CONSTIPATION; Start 03/01/18 at 16:00; Stop 03/02/18 at 15:59 Acetaminophen/ Hydrocodone Bitart (Lortab 7.5/325) 1 tab PRN Q4HRS PRN PO PAIN ; Start 02/28/18 at 10:30 Morphine Sulfate (Morphine Sulfate) 4 mg PRN Q2HR PRN IV PAIN Last administered on 02/28/18at 21:04; Start 02/28/18 at 10:30 Acetaminophen/ Hydrocodone Bitart (Lortab 7.5/325) 2 tab PRN Q4HRS PRN PO PAIN Last administered on 02/28/18at 15:55; Start 02/28/18 at 10:30 Dextrose (Dextrose 50%-Water Syringe) 12.5 gm PRN Q15MIN PRN IV SEE COMMENTS; Start 02/28/18 at 10:30; Status UNV Cefazolin Sodium 1 gm/Dextrose 50 ml @ 100 mls/hr Q6H IV Last administered on 03/01/18at 02:39; Start 02/28/18 at 14:30; Stop 03/01/18 at 02:59; Status DC Clopidogrel Bisulfate (Plavix) 75 mg DAILYWBKFT PO Last administered on at 08:29; Start 03/01/18 at 08:00 Clopidogrel Bisulfate (Plavix) 75 mg DAILY PO ; Start 03/01/18 at 09:00; Status UNV Enoxaparin Sodium (Lovenox 40mg Syringe) 40 mg DAILY SQ Last administered on at 08:27; Start 03/01/18 at 09:00 Insulin Glargine (Lantus) 30 units QHS SQ ; Start 03/01/18 at 21:00 Active Scripts Active Reported Creon 36,000 Units Capsule (Lipase/Protease/Amylase) 1 Each Capsule.dr 1 Each PO DAILY16 with evening snack [place] Solostar (Insulin Glargine,Hum.rec.anlog) 300 Unit/1 Ml Insuln.pen 45 Units SQ HS Dutasteride 0.5 Mg Capsule 0.5 Mg PO DAILY Lisinopril 10 Mg Tablet 10 Mg PO DAILY Creon 36,000 Units Capsule (Lipase/Protease/Amylase) 1 Each Capsule.dr 2 Cap PO TIDBFRMEAL Tramadol Hcl 50 Mg Tablet 50 Mg PO DAILY Rabeprazole Sodium 20 Mg Tablet.dr 20 Mg PO DAILY Alfuzosin Hcl 10 Mg Tab.er.24h 10 Mg PO DAILY Metformin Hcl 500 Mg Tablet 500 Mg PO BID Clopidogrel (Clopidogrel Bisulfate) 75 Mg Tablet 75 Mg PO DAILY Atorvastatin Calcium 20 Mg Tablet 20 Mg PO HS Pioglitazone Hcl 15 Mg Tablet 15 Mg PO DAILY One Daily Plus Minerals (Multivitamin With Minerals) 1 Each Tablet 1 Each PO DAILY Aspirin 81 Mg Tab.chew 81 Mg PO DAILY [place] 3 1,000 Mg Softgel ([place]-3 Fatty Acids/Fish Oil) 1 Each Capsule 1 Each PO DAILY Uroxatral (Alfuzosin Hcl) 10 Mg Tab.er.24h 10 Mg PO DAILY Avodart (Dutasteride) 0.5 Mg Capsule 0.5 Mg PO DAILY Vitals/I & O Vital Sign - Last 24 Hours 02/28/18 02/28/18 02/28/18 02/28/18 13:45 14:10 14:30 15:00 Temp 98.3 98.3 Pulse 102 111 114 B/P (MAP) 141/77 (98) 96/59 (71) 116/72 (87) Pulse Ox 94 94 O2 Delivery Nasal Cannula Nasal Cannula Nasal Cannula Nasal Cannula O2 Flow Rate 2.0 2.0 2.0 2.0 02/28/18 02/28/18 02/28/18 02/28/18 15:55 17:15 19:00 19:40 Temp 98.2 98.2 Pulse 118 B/P (MAP) 125/68 (87) Pulse Ox 95 O2 Delivery Nasal Cannula Room Air Nasal Cannula Room Air O2 Flow Rate 2.0 2.0 02/28/18 02/28/18 02/28/18 03/01/18 21:04 21:34 23:00 03:00 Temp 98.0 97.9 98.0 97.9 Pulse 98 90 Resp 20 20 B/P (MAP) 141/76 (97) 121/59 (79) Pulse Ox 91 96 O2 Delivery Room Air Room Air Nasal Cannula Nasal Cannula O2 Flow Rate 2.0 2.0 03/01/18 03/01/18 03/01/18 03/01/18 07:00 07:10 08:28 08:29 Temp 97.9 97.9 Pulse 100 100 Resp 16 B/P (MAP) 131/70 (90) 131/70 Pulse Ox 94 O2 Delivery Room Air Room Air Room Air 03/01/18 11:00 Temp 98.1 98.1 Pulse 98 Resp 16 B/P (MAP) 129/63 (85) Pulse Ox 92 O2 Delivery Room Air Intake and Output 02/28/18 02/28/18 03/01/18 15:00 23:00 07:00 Intake Total 1250 ml 680 ml 500 ml Output Total 200 ml 75 ml 1700 ml Balance 1050 ml 605 ml -1200 ml BAHMAN SÁNCHEZ MD Mar 01, 2018 13:12
[2018-03-01] MEDS: HYDROcodone/APAP 7.5/325MG 1 TAB TABLET PO PRN ×2 (14:24→21:58)
[2018-03-01 15:00] VITALS: BP 125/65
[2018-03-01] MEDS ORDERED: BISACODYL 10 MG SUPP.RECT. PR PRN (16:00)
[2018-03-01 19:00] VITALS: BP 91/49
[2018-03-01] MEDS: TAMSULOSIN 0.4 MG CAP.ER.24H. PO SCH (21:58)
[2018-03-01] MEDS: ATORVASTATIN CALCIUM 20 MG TABLET PO SCH (21:59)
[2018-03-01] MEDS: INSULIN GLARGINE 300 UNITS/3 ML INSULN.PEN. SQ SCH (22:04)
[2018-03-01 23:00] VITALS: BP 137/88
[2018-03-02 03:00] VITALS: BP 111/55
[2018-03-02] MEDS: HYDROcodone/APAP 7.5/325MG 1 TAB TABLET PO PRN ×2 (06:07→17:11)
[2018-03-02] MEDS: PANTOPRAZOLE 40 MG TABLET.DR. PO SCH (06:07)
[2018-03-02 07:00] VITALS: BP 95/50
[2018-03-02] MEDS: INSULIN LISPRO 300 UNITS/3 ML INSULN.PEN. SQ SCH ×3 (08:00→17:15)
[2018-03-02] MEDS: LIPASE/PROTEAS/AMYLAS 10/32/42 CAPSULE.DR. PO SCH ×3 (08:00→17:09)
--- NOTE | 2018-03-02 08:25 | PDOC ---
PROGRESS NOTES Chief Complaint Chief Complaint rt traumatic femoral fx s/p fall from stairs s/p rt hip hemiarthroplasty h/o CAD s/p PCI, CABG DM2 on insulin anemia post op H/O pancreatic problem fu with [facility] History of Present Illness History of Present Illness Admitted for traumatic fall down stairs s/p right hip hemiarthroplasty ROS: no fever, chills , sob or chest pain 03/01: c/o some chest pain today post PTOT, with some nausea 03/02: hyperglycemia, sodium 131, Hb 9.9 A/P: rt traumatic femoral fx s/p fall from stairs s/p rt hip hemiarthroplasty - f/u ortho and PT recs, will need SNF/Rehab on d/c h/o CAD s/p PCI, CABG DM2 on insulin acute anemia - Hb 13->9.9, will monitor, consider iron Hyponatremia - likely poor PO intake, nutrition consultation, supplements for likely moderate protein calorie malnutrition Vitamin D insufficiency - 2000 IU daily H/O pancreatic problem fu with [facility] Vitals Vitals Vital Signs Date Time Temp Pulse Resp B/P (MAP) Pulse Ox O2 Delivery O2 Flow Rate FiO2 03/02/18 03:00 98.2 94 14 111/55 (73) 92 Room Air 98.2 Physical Exam General: Alert, Oriented X3, Cooperative Heart: Regular rate, Normal S1, Normal S2 Lungs: Wheezing Abdomen: Normal bowel sounds, Soft, No tenderness Extremities: No clubbing, No cyanosis, No edema, Normal pulses, Other (rt thigh as a drain post op) Skin: No rashes Labs LABS Laboratory Tests Test 03/01/18 11:42 03/01/18 14:40 03/01/18 17:08 03/01/18 18:00 Glucose (Fingerstick) 239 mg/dL (70-99) 244 mg/dL (70-99) Troponin I Quantitative < 0.017 ng/mL (0.000-0.055) < 0.017 ng/mL (0.000-0.055) Test 03/01/18 21:11 03/02/18 07:52 Glucose (Fingerstick) 229 mg/dL (70-99) 140 mg/dL (70-99) Comment Review of Relevant I have reviewed the following items alejandro (where applicable) has been applied. Labs Laboratory Tests Test 02/28/18 10:07 11/10/18 11:03 02/28/18 17:02 02/28/18 20:40 Glucose (Fingerstick) 148 mg/dL (70-99) 165 mg/dL (70-99) 290 mg/dL (70-99) 303 mg/dL (70-99) Test 03/01/18 04:45 03/01/18 08:02 03/01/18 11:42 03/01/18 14:40 White Blood Count 9.8 x10^3/uL (4.0-11.0) Red Blood Count 3.16 x10^6/uL (4.30-5.70) Hemoglobin 9.9 g/dL (13.0-17.5) Hematocrit 28.6 % (39.0-53.0) Mean Corpuscular Volume 91 fL (79-100) Mean Corpuscular Hemoglobin 31 pg (25-35) Mean Corpuscular Hemoglobin Concent 35 g/dL (31-37) Red Cell Distribution Width 14.1 % (11.5-14.5) Platelet Count 190 x10^3/uL (140-400) Neutrophils (%) (Auto) 77 % (31-73) Lymphocytes (%) (Auto) 13 % (24-48) Monocytes (%) (Auto) 10 % (0-9) Eosinophils (%) (Auto) 0 % (0-3) Basophils (%) (Auto) 0 % (0-3) Neutrophils # (Auto) 7.6 x10^3uL (1.8-7.7) Lymphocytes # (Auto) 1.3 x10^3/uL (1.0-4.8) Monocytes # (Auto) 1.0 x10^3/uL (0.0-1.1) Eosinophils # (Auto) 0.0 x10^3/uL (0.0-0.7) Basophils # (Auto) 0.0 x10^3/uL (0.0-0.2) Sodium Level 131 mmol/L (136-145) Potassium Level 4.4 mmol/L (3.5-5.1) Chloride Level 95 mmol/L (98-107) Carbon Dioxide Level 28 mmol/L (21-32) Anion Gap 8 (6-14) Blood Urea Nitrogen 23 mg/dL (8-26) Creatinine 1.0 mg/dL (0.7-1.3) Estimated GFR (Cockcroft-Gault) 72.1 Glucose Level 231 mg/dL (70-99) Calcium Level 8.6 mg/dL (8.5-10.1) Troponin I Quantitative < 0.017 ng/mL (0.000-0.055) < 0.017 ng/mL (0.000-0.055) Glucose (Fingerstick) 192 mg/dL (70-99) 239 mg/dL (70-99) Test 03/01/18 17:08 03/01/18 18:00 03/01/18 21:11 03/02/18 07:52 Glucose (Fingerstick) 244 mg/dL (70-99) 229 mg/dL (70-99) 140 mg/dL (70-99) Troponin I Quantitative < 0.017 ng/mL (0.000-0.055) Laboratory Tests Test 03/01/18 11:42 03/01/18 14:40 03/01/18 17:08 03/01/18 18:00 Glucose (Fingerstick) 239 mg/dL (70-99) 244 mg/dL (70-99) Troponin I Quantitative < 0.017 ng/mL (0.000-0.055) < 0.017 ng/mL (0.000-0.055) Test 03/01/18 21:11 03/02/18 07:52 Glucose (Fingerstick) 229 mg/dL (70-99) 140 mg/dL (70-99) Medications Current Medications Acetaminophen (Tylenol) 650 mg PRN Q6HRS PRN PO FEVER; Start 02/27/18 at 16:15 Ondansetron HCl (Zofran) 4 mg PRN Q6HRS PRN IV NAUSEA/VOMITING; Start 02/27/18 at 16:15; Stop 02/28/18 at 10:39; Status DC Morphine Sulfate (Morphine Sulfate) 2 mg PRN Q2HR PRN IV MODERATE TO SEVERE PAIN Last administered on 02/28/18at 07:16; Start 02/27/18 at 16:15; Stop 02/28 at 10:42; Status DC Tramadol HCl (Ultram) 50 mg PRN Q6HRS PRN PO MILD TO MODERATE PAIN; Start 02/27 at 16:15; Stop 02/28/18 at 10:39; Status DC Docusate Sodium (Colace) 100 mg PRN DAILY PRN PO CONSTIPATION; Start 02/27/18 at 16:15 Acetaminophen/ Hydrocodone Bitart (Lortab 5/325) 1 tab PRN Q4HRS PRN PO SEVERE PAIN Last administered on 02/27/18 20:49; Start 02/27/18 at 16:15; Stop at 10:39; Status DC Aspirin (Children'S Aspirin) 81 mg DAILY PO Last administered on 03/01/18 08: 29; Start 02/28/18 at 09:00 Atorvastatin Calcium (Lipitor) 20 mg HS PO Last administered on 03/01/18 21: 59; Start 02/27/18 at 21:00 Lisinopril (Prinivil) 10 mg DAILY PO Last administered on 03/01/18 08:29; Start 02/28/18 at 09:00 Tramadol HCl (Ultram) 50 mg DAILY PO Last administered on 03/01/18 08:28; Start 02/28/18 at 09:00 Tamsulosin HCl (Flomax) 0.4 mg QHS PO Last administered on 03/01/18 21:58; Start 02/27/18 at 21:00 Dutasteride (Avodart) 0.5 mg DAILY PO Last administered on 03/01/18 08:27; Start 02/28/18 at 09:00 Amylase/Lipase/ Protease (Zenpep 10,000) 1 cap DAILY16 PO ; Start 02/27/18 at 17 :00; Stop 02/27/18 at 17:00; Status DC Amylase/Lipase/ Protease (Zenpep 10,000) 2 cap TIDWMEALS PO Last administered on 03/01/18 17:11; Start 02/27/18 at 17:00 Multivitamins (Thera M Plus) 1 tab DAILY PO Last administered on 03/01/18at 08: 27; Start 02/28/18 at 09:00 Fish Oil (Fish Oil) 1,000 mg DAILY PO Last administered on 03/01/18at 08:28; Start 02/28/18 at 09:00 Pioglitazone HCl (Actos) 15 mg DAILY PO Last administered on 03/01/18at 08:28; Start 02/28/18 at 09:00 Pantoprazole Sodium (Protonix) 40 mg DAILYAC PO Last administered on at 06:07; Start 02/28/18 at 07:30 Insulin Glargine (Lantus) 20 units QHS SQ Last administered on 02/28/18at 21:09 ; Start 02/27/18 at 21:00; Stop 03/01/18 at 10:53; Status DC Insulin Human Lispro (HumaLOG) 0-9 UNITS TIDWMEALS SQ Last administered on 03/08at 17:16; Start 02/27/18 at 17:00 Dextrose (Dextrose 50%-Water Syringe) 12.5 gm PRN Q15MIN PRN IV SEE COMMENTS; Start 02/27/18 at 16:30 Amylase/Lipase/ Protease (Zenpep 10,000) 1 cap PRN DAILY PRN PO WITH SNACKS; Start 02/27/18 at 17:00 Rocuronium [place] (Zemuron) 50 mg STK-MED ONCE .ROUTE ; Start 02/28/18 at 07: 44; Stop 02/28/18 at 07:45; Status DC Fentanyl Citrate (Fentanyl 2ml Vial) 100 mcg STK-MED ONCE .ROUTE ; Start at 07:44; Stop 02/28/18 at 07:45; Status DC Sevoflurane (Ultane) 90 ml STK-MED ONCE IH ; Start 02/28/18 at 07:45; Stop 02/05 at 07:46; Status DC Propofol 20 ml @ As Directed STK-MED ONCE IV ; Start 02/28/18 at 07:45; Stop 02/28/18 at 07:46; Status DC Dexamethasone Sodium Phosphate (Decadron) 20 mg STK-MED ONCE .ROUTE ; Start 02/05 at 07:45; Stop 02/28/18 at 07:46; Status DC Ondansetron HCl (Zofran) 4 mg STK-MED ONCE .ROUTE ; Start 02/28/18 at 07:45; Stop 02/28/18 at 07:46; Status DC Phenylephrine HCl (PHENYLEPHRINE in 0.9% NACL PF) 1 mg STK-MED ONCE IV ; Start 02/28/18 at 07:45; Stop 02/28/18 at 07:46; Status DC Cefazolin Sodium 50 ml @ As Directed STK-MED ONCE IV ; Start 02/28/18 at 08:21 ; Stop 02/28/18 at 08:22; Status DC Cefazolin Sodium 50 ml @ 100 mls/hr 1X ONCE IV Last administered on at 08:29; Start 02/28/18 at 09:15; Stop 02/28/18 at 09:44; Status DC Glycopyrrolate (Robinul) 1 mg STK-MED ONCE .ROUTE ; Start 02/28/18 at 09:31; Stop 02/28/18 at 09:32; Status DC Neostigmine Methylsulfate (Neostigmine Methylsulfate) 5 mg STK-MED ONCE .ROUTE ; Start 02/28/18 at 09:31; Stop 02/28/18 at 09:32; Status DC Sevoflurane (Ultane) 60 ml STK-MED ONCE IH ; Start 02/28/18 at 09:52; Stop 02/05 at 09:53; Status DC Ondansetron HCl (Zofran) 4 mg PRN Q6HRS PRN IV NAUSEA/VOMITING; Start at 10:15; Stop 02/28/18 at 15:02; Status DC Fentanyl Citrate (Fentanyl 2ml Vial) 25 mcg PRN Q5MIN PRN IV MILD PAIN; Start 02/28/18 at 10:15; Stop 02/28/18 at 15:01; Status DC Fentanyl Citrate (Fentanyl 2ml Vial) 50 mcg PRN Q5MIN PRN IV MODERATE TO SEVERE PAIN Last administered on 02/28/18at 10:34; Start 02/28/18 at 10:15; Stop 02/28/18 at 15:01; Status DC Morphine Sulfate (Morphine Sulfate) 1 mg PRN Q10MIN PRN IV SEVERE PAIN; Start 02/28/18 at 10:15; Stop 02/28/18 at 15:02; Status DC Ringer's Solution 1,000 ml @ 30 mls/hr Q24H IV Last administered on at 10:23; Start 02/28/18 at 10:04; Stop 02/28/18 at 22:03; Status DC Lidocaine HCl (Xylocaine-Mpf 1% 2ml Vial) 2 ml 1X PRN PRN ID IV START; Start 02/28/18 at 10:15; Stop 02/28/18 at 15:02; Status DC Hydromorphone HCl (Dilaudid) 0.5 mg PRN Q10MIN PRN IV SEV PAIN, Second choice; Start 02/28/18 at 10:15; Stop 02/28/18 at 15:01; Status DC Prochlorperazine Edisylate (Compazine) 5 mg PACU PRN PRN IV NAUSEA, MRX1; Start 02/28/18 at 10:15; Stop 02/28/18 at 15:03; Status DC Oxycodone HCl (Roxicodone) 5 mg PRN Q3HRS PRN PO PAIN Last administered on 02/05at 12:18; Start 02/28/18 at 10:30 Morphine Sulfate (Morphine Sulfate) 2 mg PRN Q1HR PRN IV PAIN; Start 02/28/18 at 10:30 Fentanyl Citrate (Fentanyl 2ml Vial) 25 mcg PRN Q1HR PRN IV PAIN; Start at 10:30 Senna/Docusate Sodium (Senna Plus) 1 tab DAILY PO Last administered on at 08:26; Start 03/01/18 at 09:00 Polyethylene Glycol (miraLAX PACKET) 17 gm PRN DAILY PRN PO CONSTIPATION; Start 02/28/18 at 10:30 Ondansetron HCl (Zofran) 4 mg PRN Q4HRS PRN IV NAUSEA/VOMITING; Start at 10:30 Magnesium Hydroxide (Milk Of Magnesia) 2,400 mg 1X PRN PRN PO CONSTIPATION; Start 03/01/18 at 06:00; Stop 03/02/18 at 05:59; Status DC Bisacodyl (Dulcolax Supp) 10 mg 1X PRN PRN [place] CONSTIPATION; Start 03/01/18 at 16:00; Stop 03/02/18 at 15:59 Acetaminophen/ Hydrocodone Bitart (Lortab 7.5/325) 1 tab PRN Q4HRS PRN PO PAIN ; Start 02/28/18 at 10:30 Morphine Sulfate (Morphine Sulfate) 4 mg PRN Q2HR PRN IV PAIN Last administered on 02/28/18at 21:04; Start 02/28/18 at 10:30 Acetaminophen/ Hydrocodone Bitart (Lortab 7.5/325) 2 tab PRN Q4HRS PRN PO PAIN Last administered on 03/02/18at 06:07; Start 02/28/18 at 10:30 Dextrose (Dextrose 50%-Water Syringe) 12.5 gm PRN Q15MIN PRN IV SEE COMMENTS; Start 02/28/18 at 10:30; Status UNV Cefazolin Sodium 1 gm/Dextrose 50 ml @ 100 mls/hr Q6H IV Last administered on 03/01/18at 02:39; Start 02/28/18 at 14:30; Stop 03/01/18 at 02:59; Status DC Clopidogrel Bisulfate (Plavix) 75 mg DAILYWBKFT PO Last administered on at 08:29; Start 03/01/18 at 08:00 Clopidogrel Bisulfate (Plavix) 75 mg DAILY PO ; Start 03/01/18 at 09:00; Status UNV Enoxaparin Sodium (Lovenox 40mg Syringe) 40 mg DAILY SQ Last administered on at 08:27; Start 03/01/18 at 09:00 Insulin Glargine (Lantus) 30 units QHS SQ Last administered on 03/01/18at 22:04 ; Start 03/01/18 at 21:00 Active Scripts Active Reported Creon 36,000 Units Capsule (Lipase/Protease/Amylase) 1 Each Capsule.dr 1 Each PO DAILY16 with evening snack [place] Solostar (Insulin Glargine,Hum.rec.anlog) 300 Unit/1 Ml Insuln.pen 45 Units SQ HS Dutasteride 0.5 Mg Capsule 0.5 Mg PO DAILY Lisinopril 10 Mg Tablet 10 Mg PO DAILY [place] 36,000 Units Capsule (Lipase/Protease/Amylase) 1 Each Capsule. 2 Cap PO TIDBFRMEAL Tramadol Hcl 50 Mg Tablet 50 Mg PO DAILY Rabeprazole Sodium 20 Mg Tablet.dr 20 Mg PO DAILY Alfuzosin Hcl 10 Mg Tab.er.24h 10 Mg PO DAILY Metformin Hcl 500 Mg Tablet 500 Mg PO BID Clopidogrel (Clopidogrel Bisulfate) 75 Mg Tablet 75 Mg PO DAILY Atorvastatin Calcium 20 Mg Tablet 20 Mg PO HS Pioglitazone Hcl 15 Mg Tablet 15 Mg PO DAILY One Daily Plus Minerals (Multivitamin With Minerals) 1 Each Tablet 1 Each PO DAILY Aspirin 81 Mg Tab.chew 81 Mg PO DAILY [place] 3 1,000 Mg Softgel ([place]-3 Fatty Acids/Fish Oil) 1 Each Capsule 1 Each PO DAILY Uroxatral (Alfuzosin Hcl) 10 Mg Tab.er.24h 10 Mg PO DAILY Avodart (Dutasteride) 0.5 Mg Capsule 0.5 Mg PO DAILY Vitals/I & O Vital Sign - Last 24 Hours 03/01/18 03/01/18 03/01/18 03/01/18 08:28 08:29 11:00 14:24 Temp 98.1 98.1 Pulse 100 98 Resp 16 B/P (MAP) 131/70 129/63 (85) Pulse Ox 92 O2 Delivery Room Air Room Air Room Air 03/01/18 03/01/18 03/01/18 03/01/18 15:00 19:00 20:00 23:00 Temp 97.8 98.3 98.3 97.8 98.3 98.3 Pulse 109 104 91 Resp 14 14 14 B/P (MAP) 125/65 (85) 91/49 (63) 137/88 (104) Pulse Ox 91 93 96 O2 Delivery Room Air Room Air Room Air Room Air 03/02/18 03:00 Temp 98.2 98.2 Pulse 94 Resp 14 B/P (MAP) 111/55 (73) Pulse Ox 92 O2 Delivery Room Air Intake and Output 03/01/18 03/01/18 03/02/18 15:00 23:00 07:00 Intake Total 180 ml 200 ml Output Total 600 ml 300 ml 200 ml Balance -420 ml -100 ml -200 ml ALPA MCCLENDON MD Mar 02, 2018 08:25
[2018-03-02] MEDS: LISINOPRIL 10 MG TABLET PO SCH (08:56)
[2018-03-02] MEDS: OMEGA-3 FATTY ACIDS/FISH OIL 1,000 MG CAPSULE. PO SCH (08:56)
[2018-03-02] MEDS: ASPIRIN CHEWABLE 81 MG TABLET. PO SCH (08:56)
[2018-03-02] MEDS: CLOPIDOGREL BISULFATE 75 MG TABLET PO SCH (08:56)
[2018-03-02] MEDS: traMADol 50 MG TABLET PO SCH (08:57)
[2018-03-02] MEDS: PIOGLITAZONE 15 MG TABLET. PO SCH (08:57)
[2018-03-02] MEDS: SENNOSIDES/DOCUSATE 8.6/50MG TABLET. PO SCH (08:57)
[2018-03-02] MEDS: DUTASTERIDE 0.5 MG CAPSULE PO SCH (08:57)
[2018-03-02] MEDS: MULTIVITAMIN with MINERAL TABLET. PO SCH (08:57)
[2018-03-02] MEDS: ENOXAPARIN 40 MG/0.4 ML SYRINGE. SQ SCH (09:01)
[2018-03-02 11:00] VITALS: BP 98/50
[2018-03-02] MEDS ORDERED: IV RINGERS,LACTATED 1000ML 1,000 ML IV ONE (14:00)
[2018-03-02 15:00] VITALS: BP 118/65
[2018-03-02 19:00] VITALS: BP 136/47
[2018-03-02] MEDS: TAMSULOSIN 0.4 MG CAP.ER.24H. PO SCH (20:28)
[2018-03-02] MEDS: ATORVASTATIN CALCIUM 20 MG TABLET PO SCH (20:28)
[2018-03-02] MEDS: INSULIN GLARGINE 300 UNITS/3 ML INSULN.PEN. SQ SCH (20:37)
[2018-03-02 23:00] VITALS: BP 138/74
[2018-03-03 03:00] VITALS: BP 118/55
[2018-03-03] MEDS: PANTOPRAZOLE 40 MG TABLET.DR. PO SCH (06:07)
[2018-03-03 07:00] VITALS: BP 134/62
--- NOTE | 2018-03-03 07:46 | PDOC ---
PROGRESS NOTES Chief Complaint Chief Complaint rt traumatic femoral fx s/p fall from stairs s/p rt hip hemiarthroplasty h/o CAD s/p PCI, CABG DM2 on insulin anemia post op H/O pancreatic problem fu with [facility] History of Present Illness History of Present Illness Admitted for traumatic fall down stairs s/p right hip hemiarthroplasty ROS: no fever, chills , sob or chest pain 03/01: c/o some chest pain today post PTOT, with some nausea 03/02: hyperglycemia, sodium 131, Hb 9.9. Was hypotensive after physical therapy , positive orthostatics, given 1 L LR bolus. Feeling better today, denies SOB or CP, no numbness or tingling, but now has c/ o constipation, would like a BM, passing flatus. d/w bedside, would like d/ c to SNF [facility] A/P: rt traumatic femoral fx s/p fall from stairs s/p rt hip hemiarthroplasty - f/u ortho and PT recs, will need SNF/Rehab on d/c h/o CAD s/p PCI, CABG DM2 on insulin acute anemia - Hb 13->9.9, will monitor, consider iron Hyponatremia - likely poor PO intake, nutrition consultation, supplements for likely moderate protein calorie malnutrition Vitamin D insufficiency - 2000 IU daily H/O pancreatic problem fu with IS[facility]RO Vitals Vitals Vital Signs Date Time Temp Pulse Resp B/P (MAP) Pulse Ox O2 Delivery O2 Flow Rate FiO2 03/03/18 03:00 98.6 97 16 118/55 (76) 100 Room Air 98.6 Physical Exam General: Alert, Oriented X3, Cooperative Heart: Regular rate, Normal S1, Normal S2 Lungs: Wheezing Abdomen: Normal bowel sounds, Soft, No tenderness Extremities: No clubbing, No cyanosis, No edema, Normal pulses, Other (rt thigh as a drain post op) Skin: No rashes Labs LABS Laboratory Tests Test 03/02/18 07:52 03/02/18 11:55 03/02/18 17:11 03/02/18 20:33 Glucose (Fingerstick) 140 mg/dL (70-99) 152 mg/dL (70-99) 152 mg/dL (70-99) 191 mg/dL (70-99) Comment Review of Relevant I have reviewed the following items alejandro (where applicable) has been applied. Labs Laboratory Tests Test 03/01/18 08:02 03/01/18 11:42 03/01/18 14:40 03/01/18 17:08 Glucose (Fingerstick) 192 mg/dL (70-99) 239 mg/dL (70-99) 244 mg/dL (70-99) Troponin I Quantitative < 0.017 ng/mL (0.000-0.055) Test 03/01/18 18:00 03/01/18 21:11 03/02/18 07:52 03/02/18 11:55 Troponin I Quantitative < 0.017 ng/mL (0.000-0.055) Glucose (Fingerstick) 229 mg/dL (70-99) 140 mg/dL (70-99) 152 mg/dL (70-99) Test 03/02/18 17:11 03/02/18 20:33 Glucose (Fingerstick) 152 mg/dL (70-99) 191 mg/dL (70-99) Laboratory Tests Test 03/02/18 07:52 03/02/18 11:55 03/02/18 17:11 03/02/18 20:33 Glucose (Fingerstick) 140 mg/dL (70-99) 152 mg/dL (70-99) 152 mg/dL (70-99) 191 mg/dL (70-99) Medications Current Medications Acetaminophen (Tylenol) 650 mg PRN Q6HRS PRN PO FEVER; Start 02/27/18 at 16:15 Ondansetron HCl (Zofran) 4 mg PRN Q6HRS PRN IV NAUSEA/VOMITING; Start 02/27/18 at 16:15; Stop 02/28/18 at 10:39; Status DC Morphine Sulfate (Morphine Sulfate) 2 mg PRN Q2HR PRN IV MODERATE TO SEVERE PAIN Last administered on 02/28/18at 07:16; Start 02/27/18 at 16:15; Stop 02/28 at 10:42; Status DC Tramadol HCl (Ultram) 50 mg PRN Q6HRS PRN PO MILD TO MODERATE PAIN; Start 02/27 at 16:15; Stop 02/28/18 at 10:39; Status DC Docusate Sodium (Colace) 100 mg PRN DAILY PRN PO CONSTIPATION; Start 02/27/18 at 16:15 Acetaminophen/ Hydrocodone Bitart (Lortab 5/325) 1 tab PRN Q4HRS PRN PO SEVERE PAIN Last administered on 02/27/18 20:49; Start 02/27/18 at 16:15; Stop at 10:39; Status DC Aspirin (Children'S Aspirin) 81 mg DAILY PO Last administered on 03/02/18 08: 56; Start 02/28/18 at 09:00 Atorvastatin Calcium (Lipitor) 20 mg HS PO Last administered on 03/02/18 20: 28; Start 02/27/18 at 21:00 Lisinopril (Prinivil) 10 mg DAILY PO Last administered on 03/01/18 08:29; Start 02/28/18 at 09:00 Tramadol HCl (Ultram) 50 mg DAILY PO Last administered on 03/02/18 08:57; Start 02/28/18 at 09:00 Tamsulosin HCl (Flomax) 0.4 mg QHS PO Last administered on 03/02/18 20:28; Start 02/27/18 at 21:00 Dutasteride (Avodart) 0.5 mg DAILY PO Last administered on 03/02/18 08:57; Start 02/28/18 at 09:00 Amylase/Lipase/ Protease (Zenpep 10,000) 1 cap DAILY16 PO ; Start 02/27/18 at 17 :00; Stop 02/27/18 at 17:00; Status DC Amylase/Lipase/ Protease (Zenpep 10,000) 2 cap TIDWMEALS PO Last administered on 03/02/18 17:09; Start 02/27/18 at 17:00 Multivitamins (Thera M Plus) 1 tab DAILY PO Last administered on 03/02/18 08: 57; Start 02/28/18 at 09:00 Fish Oil (Fish Oil) 1,000 mg DAILY PO Last administered on 03/02/18 08:56; Start 02/28/18 at 09:00 Pioglitazone HCl (Actos) 15 mg DAILY PO Last administered on 03/02/18 08:57; Start 02/28/18 at 09:00 Pantoprazole Sodium (Protonix) 40 mg DAILYAC PO Last administered on 06:07; Start 02/28/18 at 07:30 Insulin Glargine (Lantus) 20 units QHS SQ Last administered on 02/28/18at 21:09 ; Start 02/27/18 at 21:00; Stop 03/01/18 at 10:53; Status DC Insulin Human Lispro (HumaLOG) 0-9 UNITS TIDWMEALS SQ Last administered on 04/07at 17:15; Start 02/27/18 at 17:00 Dextrose (Dextrose 50%-Water Syringe) 12.5 gm PRN Q15MIN PRN IV SEE COMMENTS; Start 02/27/18 at 16:30 Amylase/Lipase/ Protease (Zenpep 10,000) 1 cap PRN DAILY PRN PO WITH SNACKS; Start 02/27/18 at 17:00 Rocuronium [place] (Zemuron) 50 mg STK-MED ONCE .ROUTE ; Start 02/28/18 at 07: 44; Stop 02/28/18 at 07:45; Status DC Fentanyl Citrate (Fentanyl 2ml Vial) 100 mcg STK-MED ONCE .ROUTE ; Start at 07:44; Stop 02/28/18 at 07:45; Status DC Sevoflurane (Ultane) 90 ml STK-MED ONCE IH ; Start 02/28/18 at 07:45; Stop 02/05 at 07:46; Status DC Propofol 20 ml @ As Directed STK-MED ONCE IV ; Start 02/28/18 at 07:45; Stop 02/28/18 at 07:46; Status DC Dexamethasone Sodium Phosphate (Decadron) 20 mg STK-MED ONCE .ROUTE ; Start 02/05 at 07:45; Stop 02/28/18 at 07:46; Status DC Ondansetron HCl (Zofran) 4 mg STK-MED ONCE .ROUTE ; Start 02/28/18 at 07:45; Stop 02/28/18 at 07:46; Status DC Phenylephrine HCl (PHENYLEPHRINE in 0.9% NACL PF) 1 mg STK-MED ONCE IV ; Start 02/28/18 at 07:45; Stop 02/28/18 at 07:46; Status DC Cefazolin Sodium 50 ml @ As Directed STK-MED ONCE IV ; Start 02/28/18 at 08:21 ; Stop 02/28/18 at 08:22; Status DC Cefazolin Sodium 50 ml @ 100 mls/hr 1X ONCE IV Last administered on at 08:29; Start 02/28/18 at 09:15; Stop 02/28/18 at 09:44; Status DC Glycopyrrolate (Robinul) 1 mg STK-MED ONCE .ROUTE ; Start 02/28/18 at 09:31; Stop 02/28/18 at 09:32; Status DC Neostigmine Methylsulfate (Neostigmine Methylsulfate) 5 mg STK-MED ONCE .ROUTE ; Start 02/28/18 at 09:31; Stop 02/28/18 at 09:32; Status DC Sevoflurane (Ultane) 60 ml STK-MED ONCE IH ; Start 02/28/18 at 09:52; Stop 02/05 at 09:53; Status DC Ondansetron HCl (Zofran) 4 mg PRN Q6HRS PRN IV NAUSEA/VOMITING; Start at 10:15; Stop 02/28/18 at 15:02; Status DC Fentanyl Citrate (Fentanyl 2ml Vial) 25 mcg PRN Q5MIN PRN IV MILD PAIN; Start 02/28/18 at 10:15; Stop 02/28/18 at 15:01; Status DC Fentanyl Citrate (Fentanyl 2ml Vial) 50 mcg PRN Q5MIN PRN IV MODERATE TO SEVERE PAIN Last administered on 02/28/18at 10:34; Start 02/28/18 at 10:15; Stop 02/28/18 at 15:01; Status DC Morphine Sulfate (Morphine Sulfate) 1 mg PRN Q10MIN PRN IV SEVERE PAIN; Start 02/28/18 at 10:15; Stop 02/28/18 at 15:02; Status DC Ringer's Solution 1,000 ml @ 30 mls/hr Q24H IV Last administered on at 10:23; Start 02/28/18 at 10:04; Stop 02/28/18 at 22:03; Status DC Lidocaine HCl (Xylocaine-Mpf 1% 2ml Vial) 2 ml 1X PRN PRN ID IV START; Start 02/28/18 at 10:15; Stop 02/28/18 at 15:02; Status DC Hydromorphone HCl (Dilaudid) 0.5 mg PRN Q10MIN PRN IV SEV PAIN, Second choice; Start 02/28/18 at 10:15; Stop 02/28/18 at 15:01; Status DC Prochlorperazine Edisylate (Compazine) 5 mg PACU PRN PRN IV NAUSEA, MRX1; Start 02/28/18 at 10:15; Stop 02/28/18 at 15:03; Status DC Oxycodone HCl (Roxicodone) 5 mg PRN Q3HRS PRN PO PAIN Last administered on 02/05at 12:18; Start 02/28/18 at 10:30 Morphine Sulfate (Morphine Sulfate) 2 mg PRN Q1HR PRN IV PAIN; Start 02/28/18 at 10:30 Fentanyl Citrate (Fentanyl 2ml Vial) 25 mcg PRN Q1HR PRN IV PAIN; Start at 10:30 Senna/Docusate Sodium (Senna Plus) 1 tab DAILY PO Last administered on at 08:57; Start 03/01/18 at 09:00 Polyethylene Glycol (miraLAX PACKET) 17 gm PRN DAILY PRN PO CONSTIPATION; Start 02/28/18 at 10:30 Ondansetron HCl (Zofran) 4 mg PRN Q4HRS PRN IV NAUSEA/VOMITING; Start at 10:30 Magnesium Hydroxide (Milk Of Magnesia) 2,400 mg 1X PRN PRN PO CONSTIPATION; Start 03/01/18 at 06:00; Stop 03/02/18 at 05:59; Status DC Bisacodyl (Dulcolax Supp) 10 mg 1X PRN PRN [place] CONSTIPATION; Start 03/01/18 at 16:00; Stop 03/02/18 at 15:59; Status DC Acetaminophen/ Hydrocodone Bitart (Lortab 7.5/325) 1 tab PRN Q4HRS PRN PO PAIN ; Start 02/28/18 at 10:30 Morphine Sulfate (Morphine Sulfate) 4 mg PRN Q2HR PRN IV PAIN Last administered on 02/28/18at 21:04; Start 02/28/18 at 10:30 Acetaminophen/ Hydrocodone Bitart (Lortab 7.5/325) 2 tab PRN Q4HRS PRN PO PAIN Last administered on 03/02/18at 17:11; Start 02/28/18 at 10:30 Dextrose (Dextrose 50%-Water Syringe) 12.5 gm PRN Q15MIN PRN IV SEE COMMENTS; Start 02/28/18 at 10:30; Status UNV Cefazolin Sodium 1 gm/Dextrose 50 ml @ 100 mls/hr Q6H IV Last administered on 03/01/18at 02:39; Start 02/28/18 at 14:30; Stop 03/01/18 at 02:59; Status DC Clopidogrel Bisulfate (Plavix) 75 mg DAILYWBKFT PO Last administered on at 08:56; Start 03/01/18 at 08:00 Clopidogrel Bisulfate (Plavix) 75 mg DAILY PO ; Start 03/01/18 at 09:00; Status UNV Enoxaparin Sodium (Lovenox 40mg Syringe) 40 mg DAILY SQ Last administered on at 09:01; Start 03/01/18 at 09:00 Insulin Glargine (Lantus) 30 units QHS SQ Last administered on 03/02/18at 20:37 ; Start 03/01/18 at 21:00 Ringer's Solution 1,000 ml @ 150 mls/hr 1X ONCE IV Last administered on 03/02at 13:55; Start 03/02/18 at 14:00; Stop 03/02/18 at 20:39; Status DC Active Scripts Active Reported Creon 36,000 Units Capsule (Lipase/Protease/Amylase) 1 Each Capsule.dr 1 Each PO DAILY16 with evening snack Toujeo Solostar (Insulin Glargine,Hum.rec.anlog) 300 Unit/1 Ml Insuln.pen 45 Units SQ HS Dutasteride 0.5 Mg Capsule 0.5 Mg PO DAILY Lisinopril 10 Mg Tablet 10 Mg PO DAILY Creon 36,000 Units Capsule (Lipase/Protease/Amylase) 1 Each Capsule. 2 Cap PO TIDBFRMEAL Tramadol Hcl 50 Mg Tablet 50 Mg PO DAILY Rabeprazole Sodium 20 Mg Tablet.dr 20 Mg PO DAILY Alfuzosin Hcl 10 Mg Tab.er.24h 10 Mg PO DAILY Metformin Hcl 500 Mg Tablet 500 Mg PO BID Clopidogrel (Clopidogrel Bisulfate) 75 Mg Tablet 75 Mg PO DAILY Atorvastatin Calcium 20 Mg Tablet 20 Mg PO HS Pioglitazone Hcl 15 Mg Tablet 15 Mg PO DAILY One Daily Plus Minerals (Multivitamin With Minerals) 1 Each Tablet 1 Each PO DAILY Aspirin 81 Mg Tab.chew 81 Mg PO DAILY [place] 3 1,000 Mg Softgel ([place]-3 Fatty Acids/Fish Oil) 1 Each Capsule 1 Each PO DAILY Uroxatral (Alfuzosin Hcl) 10 Mg Tab.er.24h 10 Mg PO DAILY Avodart (Dutasteride) 0.5 Mg Capsule 0.5 Mg PO DAILY Vitals/I & O Vital Sign - Last 24 Hours 03/02/18 03/02/18 03/02/18 03/02/18 08:00 08:56 08:57 10:00 Pulse 93 Resp 16 20 B/P (MAP) 95/50 O2 Delivery Room Air Room Air Room Air 03/02/18 03/02/18 03/02/18 03/02/18 11:00 15:00 17:11 18:00 Temp 98.1 98.4 98.1 98.4 Pulse 90 101 Resp 16 16 16 16 B/P (MAP) 98/50 (66) 118/65 (82) Pulse Ox 93 98 O2 Delivery Room Air Room Air Room Air Room Air 03/02/18 03/02/18 03/02/18 03/03/18 19:00 20:05 23:00 03:00 Temp 98.7 97.7 98.6 98.7 97.7 98.6 Pulse 108 103 97 Resp 16 16 16 B/P (MAP) 136/47 (76) 138/74 (95) 118/55 (76) Pulse Ox 92 96 100 O2 Delivery Room Air Room Air Room Air Room Air Intake and Output 03/02/18 03/02/18 03/03/18 15:00 23:00 07:00 Intake Total 250 ml Output Total 950 ml 525 ml Balance -950 ml -275 ml ALPA MCCLENDON MD Mar 03, 2018 07:46
[2018-03-03] MEDS: INSULIN LISPRO 300 UNITS/3 ML INSULN.PEN. SQ SCH ×2 (08:00→12:00)
[2018-03-03] MEDS: CLOPIDOGREL BISULFATE 75 MG TABLET PO SCH (09:23)
[2018-03-03] MEDS: OMEGA-3 FATTY ACIDS/FISH OIL 1,000 MG CAPSULE. PO SCH (09:24)
[2018-03-03] MEDS: LIPASE/PROTEAS/AMYLAS 10/32/42 CAPSULE.DR. PO SCH ×2 (09:24→12:03)
[2018-03-03] MEDS: PIOGLITAZONE 15 MG TABLET. PO SCH (09:25)
[2018-03-03] MEDS: MULTIVITAMIN with MINERAL TABLET. PO SCH (09:25)
[2018-03-03] MEDS: DUTASTERIDE 0.5 MG CAPSULE PO SCH (09:25)
[2018-03-03] MEDS: LISINOPRIL 10 MG TABLET PO SCH (09:25)
[2018-03-03] MEDS: SENNOSIDES/DOCUSATE 8.6/50MG TABLET. PO SCH (09:25)
[2018-03-03] MEDS: ASPIRIN CHEWABLE 81 MG TABLET. PO SCH (09:26)
[2018-03-03] MEDS: traMADol 50 MG TABLET PO SCH (09:26)
[2018-03-03] MEDS: ENOXAPARIN 40 MG/0.4 ML SYRINGE. SQ SCH (09:28)
[2018-03-03] MEDS: HYDROcodone/APAP 7.5/325MG 1 TAB TABLET PO PRN (09:32)
[2018-03-03] MEDS ORDERED: POLY17PO3 PO (09:55)
[2018-03-03] MEDS ORDERED: ACET325T9 PO (09:55)
[2018-03-03] MEDS ORDERED: INSU300I SQ (09:55)
[2018-03-03] MEDS ORDERED: SENN-22 PO (09:55)
[2018-03-03] MEDS ORDERED: TRAM50TA PO (09:55)
--- NOTE | 2018-03-03 09:57 | DISCH ---
DISCHARGE DISCHARGE INFORMATION: DISCHARGE DATE: Mar 03, 2018 FINAL DIAGNOSIS Right hip fracture CONDITION ON DISCHARGE: Stable CODE STATUS: Code Status: Full JAIL: SNF STAY <30 DAYS: Yes HOSPICE: HOSPICE: No HOSPICE EVAL & TREAT: No LTAC: ADMIT TO LTAC: No POST DISCHARGE ORDERS: ACTIVITY ORDERS: Activity as tolerated WEIGHT BEARING STATUS: No restrictions DIET AFTER DISCHARGE: ADA WOUND/INCISION CARE: Ice to area for comfort, Change dressing, May get incision wet CHECKS AFTER DISCHARGE: CHECKS AFTER DISCHARGE: Check blood press - daily FOLLOW-UP: PHYSICIAN FOLLOW-UP: Ortho - Dr. Quevedo - 2 weeks TREATMENT/EQUIPMENT ORDERS: ADAPTIVE EQUIPMENT NEEDED: None Physical Therapy For: Evalulation/Treatment Occupational Therapy For: Evaluation/Treatment DISCHARGE MEDICATIONS: Home Meds Active Scripts Polyethylene Glycol 3350 (POLYETHYLENE GLYCOL 3350) 17 Gm Powd.pack, 17 GM PO PRN DAILY PRN for CONSTIPATION for 30 Days, #30 PKT Prov:ALPA MCCLENDON MD 03/03/18 Sennosides/Docusate Sodium (SENNA-TIME S TABLET) 1 Each Tablet, 1 TAB PO DAILY for constipation for 30 Days, #30 TAB Prov:ALPA MCCLENDON MD 03/03/18 Acetaminophen (TYLENOL) 325 Mg Tablet, 650 MG PO PRN Q6HRS PRN for FEVER for 30 Days, #120 TAB Prov:ALPA MCCLENDON MD 03/03/18 Insulin Glargine,Hum.rec.anlog (Toujeo Solostar) 300 Unit/1 Ml Insuln.pen, 30 UNITS SQ HS for diabetes for 30 Days, #1 EACH Prov:ALPA MCCLENDON MD 03/03/18 Tramadol Hcl (TRAMADOL HCL) 50 Mg Tablet, 50 MG PO DAILY for pain in pancrease for 6 Days, #24 TAB Prov:ALPA MCCLENDON MD 03/03/18 Reported Medications Lipase/Protease/Amylase (KASSY REID 36,000 UNITS CAPSULE) 1 Each Capsule., 1 EACH PO DAILY16 for pancrease, CAP with evening snack 02/27/18 Dutasteride (Dutasteride) 0.5 Mg Capsule, 0.5 MG PO DAILY for prostate 02/27/18 Lisinopril (LISINOPRIL) 10 Mg Tablet, 10 MG PO DAILY for bloodpressure 02/27/18 Lipase/Protease/Amylase (KASSY REID 36,000 UNITS CAPSULE) 1 Each Capsule., 2 CAP PO TIDBFRMEAL for pancrease 02/27/18 Rabeprazole Sodium (RABEPRAZOLE SODIUM) 20 Mg Tablet.dr, 20 MG PO DAILY for stomach 02/27/18 Alfuzosin Hcl (ALFUZOSIN HCL) 10 Mg Tab.er.24h, 10 MG PO DAILY for i don't know what it is for 02/27/18 Clopidogrel Bisulfate (CLOPIDOGREL) 75 Mg Tablet, 75 MG PO DAILY for anticoagulant 02/27/18 Atorvastatin Calcium (ATORVASTATIN CALCIUM) 20 Mg Tablet, 20 MG PO HS for FOR CHOLESTEROL, #30 TAB 0 Refills 08/30/14 Pioglitazone Hcl (PIOGLITAZONE HCL) 15 Mg Tablet, 15 MG PO DAILY, TAB 08/09/14 Multivitamin With Minerals (ONE DAILY PLUS MINERALS) 1 Each Tablet, 1 EACH PO DAILY 08/09/14 Aspirin (ASPIRIN) 81 Mg Tab.chew, 81 MG PO DAILY, TAB.CHEW 08/09/14 [place]-3 Fatty Acids/Fish Oil (OMEGA 3 1,000 MG SOFTGEL) 1 Each Capsule, 1 EACH PO DAILY 08/09/14 Discontinued Reported Medications Metformin Hcl (METFORMIN HCL) 500 Mg Tablet, 500 MG PO BID for diabetes 02/27/18 Alfuzosin Hcl (UROXATRAL) 10 Mg Tab.er.24h, 10 MG PO DAILY 08/09/14 Dutasteride (AVODART) 0.5 Mg Capsule, 0.5 MG PO DAILY, TAB 08/09/14 ALPA MCCLENDON MD Mar 03, 2018 09:57
[2018-03-03] MEDS ORDERED: MAGNESIUM CITRATE 296 ML SOLUTION. PO ONE (10:00)
--- NOTE | 2018-03-03 10:00 | PDOC3 ---
Discharge Summary Visit Information Date of Admission: Feb 27, 2018 Date of Discharge: Mar 03, 2018 Admitting Diagnosis: Right hip fracture Final Diagnosis Right hip fracture Brief Hospital Course Allergies Allergies Coded Allergies Type Severity Reaction Last Updated Verified No Known Drug Allergies 02/28/18 No Vital Signs Vital Signs Date Time Temp Pulse Resp B/P (MAP) Pulse Ox O2 Delivery O2 Flow Rate FiO2 03/03/18 09:32 Room Air 03/03/18 09:25 92 134/62 03/03/18 07:00 97.6 18 93 97.6 Lab Results Laboratory Tests Test 03/01/18 11:42 03/01/18 14:40 03/01/18 17:08 03/01/18 18:00 Glucose (Fingerstick) 239 mg/dL (70-99) 244 mg/dL (70-99) Troponin I Quantitative < 0.017 ng/mL (0.000-0.055) < 0.017 ng/mL (0.000-0.055) Test 03/01/18 21:11 03/02/18 07:52 03/02/18 11:55 03/02/18 17:11 Glucose (Fingerstick) 229 mg/dL (70-99) 140 mg/dL (70-99) 152 mg/dL (70-99) 152 mg/dL (70-99) Test 03/02/18 20:33 03/03/18 07:38 Glucose (Fingerstick) 191 mg/dL (70-99) 154 mg/dL (70-99) Laboratory Tests Test 03/02/18 11:55 03/02/18 17:11 03/02/18 20:33 03/03/18 07:38 Glucose (Fingerstick) 152 mg/dL (70-99) 152 mg/dL (70-99) 191 mg/dL (70-99) 154 mg/dL (70-99) Brief Hospital Course Admitted for traumatic fall down stairs s/p right hip hemiarthroplasty ROS: no fever, chills , sob or chest pain 03/01: c/o some chest pain today post PTOT, with some nausea 03/02: hyperglycemia, sodium 131, Hb 9.9. Was hypotensive after physical therapy , positive orthostatics, given 1 L LR bolus. Feeling better today, denies SOB or CP, no numbness or tingling, but now has c/ o constipation, would like a BM, passing flatus. d/w bedside, would like d/ c to SNF [facility] A/P: rt traumatic femoral fx s/p fall from stairs s/p rt hip hemiarthroplasty - f/u ortho and PT recs, will need SNF/Rehab on d/c h/o CAD s/p PCI, CABG DM2 on insulin acute anemia - Hb 13->9.9, will monitor after d/c, consider iron Hyponatremia - likely poor PO intake, nutrition consultation, supplements for likely moderate protein calorie malnutrition Vitamin D insufficiency - 2000 IU daily H/O pancreatic problem fu with [facility] Discharge Information Condition at Discharge: Improved Follow Up: Weeks (2) Disposition/Orders: D/C to Another Facility Scheduled Alfuzosin Hcl (Alfuzosin Hcl) 10 Mg Tab.er.24h, 10 MG PO DAILY for i don't know what it is for, (Reported) Entered as Reported by: MAGDALENO HAINES on 02/27/181617 Last Action: Converted on 02/27/181627 by BAHMAN SÁNCHEZ MD Aspirin (Aspirin) 81 Mg Tab.chew, 81 MG PO DAILY, (Reported) Entered as Reported by: CELENA SANDS on 08/09/14 0658 Last Action: Continued on 02/27/181627 by BAHMAN SÁNCHEZ MD Atorvastatin Calcium (Atorvastatin Calcium) 20 Mg Tablet, 20 MG PO HS for FOR CHOLESTEROL, #30 Ref 0 (Reported) Entered as Reported by: REY ACEVEDO on 08/30/14 0716 Last Action: Continued on 02/27/181627 by BAHMAN SÁNCHEZ MD Clopidogrel Bisulfate (Clopidogrel) 75 Mg Tablet, 75 MG PO DAILY for anticoagulant, (Reported) Entered as Reported by: MAGDALENO HAINES on 02/27/181617 Last Action: Continued on 02/28/18 1406 by BAHMAN SÁNCHEZ MD Dutasteride (Dutasteride) 0.5 Mg Capsule, 0.5 MG PO DAILY for prostate, ( Reported) Entered as Reported by: MAGDALENO HAINES on 02/27/181617 Last Action: Converted on 02/27/181627 by BAHMAN SÁNCHEZ MD Insulin Glargine,Hum.rec.anlog (Toumiriano Solostar) 300 Unit/1 Ml Insuln.pen, 30 UNITS SQ HS for diabetes for 30 Days, #1 Prescribed by: ALPA MCCLENDON MD on 03/03/18 0955 Lipase/Protease/Amylase (Alexandru Barnes 36,000 Units Capsule) 1 Each Capsule., 2 CAP PO TIDBFRMEAL for pancrease, (Reported) Entered as Reported by: MAGDALENO HAINES on 02/27/181617 Last Action: Converted on 02/27/181627 by BAHMAN SÁNCHEZ MD Lipase/Protease/Amylase (Alexandru Barnes 36,000 Units Capsule) 1 Each Capsule.dr, 1 EACH PO DAILY16 for pancrease, (Reported) with evening snack Entered as Reported by: MAGDALENO HAINES on 02/27/181617 Last Action: Converted on 02/27/181627 by BAHMAN SÁNCHEZ MD Lisinopril (Lisinopril) 10 Mg Tablet, 10 MG PO DAILY for bloodpressure, ( Reported) Entered as Reported by: MAGDALENO HAINES on 02/27/181617 Last Action: Continued on 02/27/181627 by BAHMAN SÁNCHEZ MD Multivitamin With Minerals (One Daily Plus Minerals) 1 Each Tablet, 1 EACH PO DAILY, (Reported) Entered as Reported by: CELENA SANDS on 08/09/14657 Last Action: Converted on 02/27/181627 by BAHMAN SÁNCHEZ MD [place]-3 Fatty Acids/Fish Oil ([place] 3 1,000 Mg Softgel) 1 Each Capsule, 1 EACH PO DAILY, (Reported) Entered as Reported by: CELENA SANDS on 08/09/14657 Last Action: Converted on 02/27/181627 by BAHMAN SÁNCHEZ MD Pioglitazone Hcl (Pioglitazone Hcl) 15 Mg Tablet, 15 MG PO DAILY, (Reported) Entered as Reported by: CELENA SANDS on 08/09/14657 Last Action: Converted on 02/27/181627 by BAHMAN SÁNCHEZ MD Rabeprazole Sodium (Rabeprazole Sodium) 20 Mg Tablet.dr, 20 MG PO DAILY for stomach, (Reported) Entered as Reported by: MAGDALENO HAINES on 02/27/181617 Last Action: Converted on 02/27/181627 by BAHMAN SÁNCHEZ MD Sennosides/Docusate Sodium (Senna-Time S Tablet) 1 Each Tablet, 1 TAB PO DAILY for constipation for 30 Days, #30 Prescribed by: ALPA MCCLENDON MD on 03/03/18954 Tramadol Hcl (Tramadol Hcl) 50 Mg Tablet, 50 MG PO DAILY for pain in pancrease for 6 Days, #24 Prescribed by: ALPA MCCLENDON MD on 03/03/18954 Scheduled PRN Acetaminophen (Tylenol) 325 Mg Tablet, 650 MG PO PRN Q6HRS PRN for FEVER for 30 Days, #120 Prescribed by: ALPA MCCLENDON MD on 03/03/18954 Polyethylene Glycol 3350 (Polyethylene Glycol 3350) 17 Gm Powd.pack, 17 GM PO PRN DAILY PRN for CONSTIPATION for 30 Days, #30 Prescribed by: ALPA MCCLENDON MD on 03/03/18954 Discontinued Medications Alfuzosin Hcl (Uroxatral) 10 Mg Tab.er.24h, 10 MG PO DAILY, (Reported) Entered as Reported by: CELENA SANDS on 08/09/14657 Last Action: HELD on 02/28/181405 by BAHMAN SÁNCHEZ MD Dutasteride (Avodart) 0.5 Mg Capsule, 0.5 MG PO DAILY, (Reported) Entered as Reported by: CELENA SANDS on 08/09/14657 Last Action: HELD on 02/28/181405 by BAHMAN SÁNCHEZ MD Metformin Hcl (Metformin Hcl) 500 Mg Tablet, 500 MG PO BID for diabetes, ( Reported) Entered as Reported by: MAGDALENO HAINES on 02/27/18 1618 Last Action: HELD on 02/28/181405 by MD DANELLE BAUM CHRISTOPHER S MD Mar 03, 2018 10:00
[2018-03-03 11:00] VITALS: BP 119/60
--- NOTE | 2018-03-04 20:07 | PATHOLOGY ---
[facility] Accession Number: [id number] . 01 Material submitted: . RIGHT FEMORAL HEAD . 01 Clinical history: . Right hip fracture . 02 Diagnosis: Femoral head and separate segments of bone, right hip hemiarthroplasty: - Focal fragmentation of bony trabeculae and recent intertrabecular hemorrhage consistent with fracture. - Degenerative arthritis. 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 02 Comment: There is no evidence of malignancy. 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 02 Electronically signed: . Wilton Pugh MD, Pathologist NPI- [id number] . 01 Gross description: . The specimen is received in formalin, labeled "Per Ordonez, right femoral head", is a femoral head measuring 5.5 x 4.5 x 4.5 cm. The articular surface is florez-yellow and centrally granular and pitted with the opposite bone irregular, jagged and hemorrhagic consistent with a fracture site. Also received within the container are multiple florez to partially hemorrhagic segments of bone consistent with femoral neck fragments measuring 3.5 x 3.2 x 1.5 cm in aggregate. Sectioning reveals a yellow-pink trabeculated bone. Sales Engineering Manager tissue is submitted in A1-A2 after decalcification. A1. Femoral head, fracture site inked black A2. Femoral neck ([facility]; 03/02/2018) SHS/SHS . 02 Pathologist provided ICD-10: S72.091A . 02 CPT . 471115, 331936 Specimen Comment: A courtesy copy of this report has been sent to Specimen Comment: [phone], , . Specimen Comment: Report sent to , DR SÁNCHEZ / DR NIX Specimen Comment: A duplicate report has been generated due to demographic updates. Performed at: 01 [facility] [address] [facility] [address], [place] [id number] MD Theodore Clements MD Phone: [phone] Performed at: 02 [facility] [address] [place], [place] [id number] MD Wilton Pugh MD Phone: [phone]
== END 2018-03-03 13:00 | DRG 469 ==
LOC: 4 NORTH 15:37
PROVIDERS: ADMIT Internal Medicine; ATTEND Internal Medicine
PROC: 0SRR0JA Replacement of Right Hip Joint, Femoral Surface with Synthetic Substitute, Uncemented, Open Approach (ICD-10-PCS; principal; 2018-02-28 08:00)
DX: S72.001A Fracture of unspecified part of neck of right femur, initial encounter for closed fracture (principal); E43 Unspecified severe protein-calorie malnutrition; E87.1 Hypo-osmolality and hyponatremia; I25.10 Atherosclerotic heart disease of native coronary artery without angina pectoris; I10 Essential (primary) hypertension; E78.5 Hyperlipidemia, unspecified; E11.65 Type 2 diabetes mellitus with hyperglycemia; D64.9 Anemia, unspecified; E55.9 Vitamin D deficiency, unspecified; I95.9 Hypotension, unspecified; K59.00 Constipation, unspecified; W10.9XXA Fall (on) (from) unspecified stairs and steps, initial encounter; Z98.61 Coronary angioplasty status; Y93.89 Activity, other specified; Y92.098 Other place in other non-institutional residence as the place of occurrence of the external cause; Y99.8 Other external cause status; Z95.1 Presence of aortocoronary bypass graft; Z79.4 Long term (current) use of insulin; Z68.23 Body mass index [BMI] 23.0-23.9, adult; Z82.49 Family history of ischemic heart disease and other diseases of the circulatory system
CPT/HCPCS: 36415; 73501; 80048; 82306; 82962; 84484; 85025; 87641; 88305; 88311; 93005; C1713; J0690; J1100; J1650; J1815; J2270; J2370; J2405; J2704; J2710; J3010; J3490; J7030; J7120; 97110; 97530; 97535

== ENCOUNTER → 2018-11-10 | Outpatient (CLI) | payer MEDICARE, BC ==
[2018-04-03 08:46] VITALS: BP 150/84
[~2018-11-10] MED LIST changes: +ACET325T9 PO; +ALFU10TA3 PO; +CLOP75TA PO; +DUTA0.5C15 PO; +INSU100I11 SQ; +INSU300I SQ; +LIPA1CAP8 PO; +LISI10TA2 PO; +METF500T16 PO; +POLY17PO28 PO; +RABE20TA26 PO; +SENN-22 PO; +TRAM50TA PO
--- NOTE | 2018-11-10 11:26 | KCIC ---
LUMBAR SPINE WO CONTRAST Date: 11/10/2018 9:30 AM Indication: Chronic low back pain Comparison: 06/27/2017. Technique: Multi-planar multi-weighted magnetic resonance imaging of the lumbar spine was performed without intravenous contrast using the standard lumbar spine protocol. FINDINGS: 6 mm anterolisthesis at L4-5. No acute fracture. Mild multilevel degenerative disc desiccation and disc height loss. No marrow replacing process to suggest malignancy. The conus terminates at a normal level. No abnormal signal is seen within the visualized distal spinal cord. No clumping of intrathecal nerve roots. No soft tissue abnormality in the visualized abdomen or pelvis. T12-L1: No disc bulge. No facet arthropathy. No significant spinal stenosis or neural foraminal narrowing. L1-L2: Disc bulge. Mild facet arthropathy. No significant spinal stenosis or neural foraminal narrowing. L2-L3: Disc bulge. Moderate facet arthropathy. Ligamentum flavum thickening. Mild spinal stenosis. Moderate left lateral recess narrowing. Mild bilateral neural foraminal narrowing. L3-L4: Left hemilaminectomy. Severe facet arthropathy. Synovial cyst measuring 8 x 3 mm projects into the spinal canal and right lateral recess from the right facet joint. Moderate to severe spinal stenosis and right greater than left lateral recess narrowing, progressed from the prior. Moderate bilateral neural foraminal narrowing. L4-L5: Left hemilaminectomy. Anterolisthesis with disc bulge with uncovering of the disc. Moderate facet arthropathy. Possible granulation tissue in the dorsal epidural space. Moderate spinal stenosis. Moderate bilateral neural foraminal narrowing. Moderate right lateral recess narrowing. L5-S1: Disc bulge. Moderate right and severe left facet arthropathy. No significant spinal stenosis or neural foraminal narrowing. IMPRESSION: Moderate to severe spinal stenosis at L3-4 has progressed from the prior exam. Degenerative changes at the remaining levels as detailed above. Electronically signed by: Jayden Collins MD (11/10/2018 11:24 AM) [facility]
== END | disposition home or self-care (01) ==
LOC: KCIC MRI 09:14
PROVIDERS: ATTEND Family Medicine
DX: M48.061 Spinal stenosis, lumbar region without neurogenic claudication (principal); M51.36 Other intervertebral disc degeneration, lumbar region; M12.88 Other specific arthropathies, not elsewhere classified, other specified site; M71.38 Other bursal cyst, other site
CPT/HCPCS: 72148

== ENCOUNTER → 2020-11-20 | Outpatient (CLI) | payer MEDICARE, BC ==
[2018-04-03 08:46] VITALS: BP 150/84
[~2020-11-20] MED LIST changes: -ALFU10TA3 PO; +ALFU10TA4 PO; -DUTA0.5C15 PO; +DUTA0.5C36 PO; -GLIM4TAB2 PO; +GLIM4TAB8 PO; +LISI10TA16 PO; -LISI10TA2 PO; -LISI2.5T PO; +LISI2.5T12 PO; -POLY17PO28 PO; +POLY17PO52 PO; -RABE20TA26 PO; +RABE20TA29 PO; +REGADENOSON 0.4 MG/5 ML DISP.SYRIN. IV ONE
--- NOTE | 2020-11-21 12:54 | RAD ---
MR#: [id number] Date of Study: 11/20/2020 Ordering Physician: CRUZ NUNEZ, Referring Physician: TANISHA KING Tech: RT Shanthi French) (N) APPROVED REPORT Test Type: Pharmacological Stress Nurse/Tech: Yenni Olson RN Test Indications: CAD Cardiac History: CAD, See EMR. Medications: See EMR. Medical History: DM, See EMR. Resting ECG: SR Resting Heart Rate: 71 bpm Resting Blood Pressure: 140/83mmHg Pretest Chest Pain: No chest pain Nurse/Tech Notes Lungs CTA, Heart tones regular. Consent: The procedure was explained to the patient in lay terms. Informed consent was witnessed. Semaj eout was entered into [employer]. History and Stress Test performed by RT Gillian (Adriana) (N) Pharm. Details Pharmacologic stress testing was performed using 0.4mg per 5ml of regadenoson given intravenously ove r 7-10 seconds. Stress Symptoms Nausea & Dizziness. Stress test symptoms resolved by the completion of test. POST EXERCISE Reason for Termination: Infusion complete Max HR: 84 bpm Max Blood Pressure: 128/60mmHg Blood Pressure response to exercise: Normal blood pressure response during stress. Heart Rate response to exercise: WNL Chest Pain: No. Arrhythmia: No. ST Change: No. INTERPRETATION Stress EKG Conclusion: No evidence of stress induced EKG changes. Imaging Protocol IMAGE PROTOCOL: Rest Tc-99m/stress Tc-99m 1 day Rest: Stress: Viability: Radiopharm.Tc99m ZbyzygjanKi01m Sestamibi Dose10.5mCi 32.4mCi Duration 13min. 13min. Img Date 11/20/2020 11/20/2020 Inj-Img Oeum11kml. 60min. Rest Admin Site:IV - Left HandAdministrator:RT Shanthi Stewart)(N) Stress Admin Site: IV - Left HandAdministrator: RT Shanthi French)(N) STRESS DATA End Diast. Vol.95.0mlLVEDV index BSA51.0ml End Syst. Vol.37.0mlLVESV index BSA20.0ml Myocardial Fvai141.0gEject. Lirjefny60.0% Stress Scores Regional WT1.00Summed WT10.00 Regional WM0.00Summed WM8.00 LV Perfusion There is a moderate sized FIXED mid anterior wall defect worse on stress images compared to rest imag es suggestive of prior infarct with mild regan-infarct ischemia. Wall Motion Normal EF at 60% LV Perf. Quant 17 Seg. SSS5.00 17 Seg. SRS4.00 17 Seg. SDS2.00 Stress Defect Extent (% LAD)26.30Rest Defect Extent (% LAD)15.00Rev. Defect Extent (% LAD)17.50 Stress Defect Extent (% LCX) 3.80Rest Defect Extent (% LCX)0.00Rev. Defect Extent (% LCX)3.80 Stress Defect Extent (% RCA)0.00Rest Defect Extent (% RCA)0.00Rev. Defect Extent (% RCA)0.00 Stress Defect Extent (% SONIDO)13.90Rest Defect Extent (% SONIDO)6.70Rev. Defect Extent (% SONIDO)10.70 Other Information Quality:Average Risk Assessment: Moderate Risk Conclusion 1. No evidence of stress induced EKG changes 2. Fixed mid anterior wall defect with mild regan-infarct ischemia 3. Normal EF at 60% 4. Moderate risk study. Signed by : Dc Garcia, Electronically Approved : 11/21/2020 12:54:12
== END ==
LOC: NM 08:52
PROVIDERS: ATTEND Internal Medicine Cardiovascular Disease
DX: I21.9 Acute myocardial infarction, unspecified (principal); I25.9 Chronic ischemic heart disease, unspecified; I25.10 Atherosclerotic heart disease of native coronary artery without angina pectoris
CPT/HCPCS: 78452; 93017; A9500; J2785

== ENCOUNTER → 2021-08-29 | Outpatient (CLI) | payer MEDICARE, BC ==
[2018-04-03 08:46] VITALS: BP 150/84
[~2021-08-29] MED LIST changes: -REGADENOSON 0.4 MG/5 ML DISP.SYRIN. IV ONE
--- NOTE | 2021-08-30 09:56 | CARD ---
MR#: [id number] Date of Study: 08/29/2021 Ordering Physician: CRUZ NUNEZ, Referring Physician: CRUZ NUNEZ Tech: Africa Pizarro [facility] APPROVED REPORT EXAM: Two-dimensional and M-mode echocardiogram with Doppler and color Doppler. Other Information Quality : FairHR: 79bpm Rhythm : NSR INDICATION Dyspnea Cardiac Disease: CAD RISK FACTORS Hypertension Obesity Hyperlipidemia Diabetes 2D DIMENSIONS Left Atrium(2D)3.6 (1.6-4.0cm)IVSd1.0 (0.7-1.1cm) Aortic Root(2D)3.7 (2.0-3.7cm)LVDd4.3 (3.9-5.9cm) LVOT Diameter2.2 (1.8-2.4cm)PWd1.0 (0.7-1.1cm) IVSs1.5 (0.8-1.2cm)LVDs2.9 (2.5-4.0cm) FS (%) 32.5 %PWs1.4 (0.8-1.2cm) SV51.6 mlLVEF(%)61.2 (>50%) Aortic Valve AoV Peak Bear.107.6cm/sAoV VTI19.2cm AO Peak GR.4.6mmHgLVOT Peak Bear.57.2cm/s LVOT VTI 13.84cmAO Mean GR.3mmHg OG (VMAX)1.76ks5OAF (VTI)2.71cm2 Mitral Valve MV E Nstmazot83.5cm/sMV DECEL ZWIE600ka MV A Vcfgkgdt733.2cm/sMV BRP84ls E/A Ratio0.5MVA (PHT)4.11cm2 TDI E/Lateral E'11.7E/Medial E'12.4 Pulmonary Valve PV Peak Iyipleym79.6cm/sPV Peak Grad.4mmHg LEFT VENTRICLE The left ventricle is normal size. There is normal left ventricular wall thickness. The left ventricu lar systolic function is mildly reduced. EF 45% There is mild anterior wall hypokinesis. Transmitral Doppler flow pattern is Grade I-abnormal relaxation pattern. RIGHT VENTRICLE The right ventricle is normal size. There is normal right ventricular wall thickness. The right ventr icular systolic function is normal. ATRIA The left atrium size is normal. The right atrium size is normal. The interatrial septum is intact wit h no evidence for an atrial septal defect or patent foramen ovale as noted on 2-D or Doppler imaging. AORTIC VALVE The aortic valve is normal in structure and function. Doppler and Color Flow revealed no significant aortic regurgitation. There is no significant aortic valvular stenosis. MITRAL VALVE The mitral valve is normal in structure and function. There is no evidence of mitral valve prolapse. There is no mitral valve stenosis. Doppler and Color-flow revealed trace mitral regurgitation. TRICUSPID VALVE The tricuspid valve is normal in structure and function. Doppler and Color Flow revealed no tricuspid valve regurgitation noted. There is no tricuspid valve stenosis. PULMONIC VALVE Doppler and Color Flow revealed no pulmonic valvular regurgitation. There is no pulmonic valvular marilia nosis. GREAT VESSELS The aortic root is normal in size. The ascending aorta is normal in size. The IVC is normal in size a nd collapses >50% with inspiration. PERICARDIAL EFFUSION There is no evidence of significant pericardial effusion. Critical Notification Critical Value: No <Conclusion> The left ventricular systolic function is mildly reduced. EF 45% There is mild anterior wall hypokinesis. Signed by : Dc Garcia, Electronically Approved : 08/30/2021 09:56:33
== END ==
LOC: ECHO 11:12
PROVIDERS: ATTEND Internal Medicine Cardiovascular Disease
DX: I25.10 Atherosclerotic heart disease of native coronary artery without angina pectoris (principal)
CPT/HCPCS: 93306; C8929